=== PATIENT | female | born 1970 | race Caucasian/White ===

== ENCOUNTER 2017-09-14 16:50 | Emergency (ER) | payer OTHER, MEDICAID | END 2017-09-14 18:03 | disposition home or self-care (01) | LOC: FTE 16:50 → E/R 18:03 | DX: Z76.0 Encounter for issue of repeat prescription (principal); I12.0 Hypertensive chronic kidney disease with stage 5 chronic kidney disease or end stage renal disease; N18.6 End stage renal disease; E11.22 Type 2 diabetes mellitus with diabetic chronic kidney disease; Z79.01 Long term (current) use of anticoagulants; Z79.4 Long term (current) use of insulin; Z79.82 Long term (current) use of aspirin; Z87.891 Personal history of nicotine dependence; Z99.2 Dependence on renal dialysis | CPT/HCPCS: 99281; Z7502 ==

== ENCOUNTER 2017-10-11 17:19 | Inpatient (IN) | payer OTHER ==
[2017-10-11 20:21] LABS: ADD MAN DIFF? NO
[2017-10-11 20:27] LABS: WHITE BLOOD COUNT 4.4 10^3/ul (4.8-10.8)
[2017-10-11 20:28] LABS: ABNORMAL IP MESSAGE 1; BASOPHILS % 0.2 % (0.0-2.0); EOSINOPHILS # 0.1 10^3/ul (0.0-0.5); EOSINOPHILS % 3.2 % (0.0-7.0); HEMATOCRIT 20.8 % (37.0-47.0); LYMPHOCYTES # 0.7 10^3/ul (0.8-2.9); LYMPHOCYTES % 15.7 % (15.0-51.0); MEAN CORPUSCULAR HGB CONC 33.2 g/dl (32.0-37.0); MEAN CORPUSCULAR VOLUME 90.4 fl (82.0-101.0); MEAN PLATELET VOLUME 11.5 fl (7.4-10.4); MONOCYTE # 0.3 10^3/ul (0.3-0.9); MONOCYTES % 6.8 % (0.0-11.0); NEUTROPHIL # 3.3 10^3/ul (1.6-7.5); NEUTROPHILS % 74.1 % (39.0-77.0); PLATELET COUNT 190 10^3/UL (140-415); RED CELL DISTRIBUTION WIDTH 13.9 % (11.5-14.5)
[2017-10-11] MEDS ORDERED: LABETALOL HCL 20MG INJ IV (20:30)
[2017-10-11 20:36] LABS: HEMOGLOBIN 6.9 g/dl (12.0-16.0); POSITIVE DIFF @See below
[2017-10-11] MEDS: LABETALOL HCL 20MG INJ IV (20:38)
[2017-10-11 20:45] LABS: ALANINE AMINOTRANSFERASE 30 IU/L (13-69); ALBUMIN 3.8 g/dl (3.3-4.9); ALBUMIN/GLOBULIN RATIO 1.26; ALKALINE PHOSPHATASE 75 IU/L (42-121); ANION GAP 17 (8-16); ASPARTATE AMINO TRANSFERASE 16 IU/L (15-46); BILIRUBIN,INDIRECT 0.3 mg/dl (0-1.1); BILIRUBIN,TOTAL 0.3 mg/dl (0.2-1.3); BLOOD UREA NITROGEN 55 mg/dl (7-20); CALCIUM 7.7 mg/dl (8.4-10.2); CARBON DIOXIDE 19 mmol/L (21-31); CHLORIDE 110 mmol/L (97-110); CREATININE 8.55 mg/dl (0.44-1.00); GLUCOSE 108 mg/dl (70-220); POTASSIUM 3.8 mmol/L (3.5-5.1); SODIUM 142 mmol/L (135-144); TOTAL PROTEIN 6.8 g/dl (6.1-8.1)
[2017-10-11 20:56] LABS: TROPONIN-I 0.026 ng/ml (0.000-0.120)
[2017-10-11 21:44] LABS: ANISOCYTOSIS 1+ (0-0); EOSINOPHILS % (M) 3 % (0-7); LYMPHOCYTES #M 0.7 10^3/ul (0.8-2.9); LYMPHOCYTES % (M) 18 % (15-51); MICROCYTOSIS 1+ (0-0); MONOCYTE #M 0.2 10^3/ul (0.3-0.9); MONOCYTES % (M) 6 % (0-11); PLATELET ESTIMATE NORMAL; POIKILOCYTOSIS 1+ (0-0); SEGMENTED NEUTROPHILS (M) % 73 % (39-77); SMUDGE%M 6 % (0-0)
[2017-10-11] MEDS: hydrALAzine 20 MG INJ IV ×2 (22:18→22:59)
[2017-10-11] MEDS: morphine 4 MG/ML VIAL IV (23:05)
[2017-10-12 00:16] LABS: IMMEDIATE SPIN CROSSMATCH 1 2
[2017-10-12] MEDS: niCARdipine-NS 0.1MG/ML DRIP 200 ML IV (00:25)
[2017-10-12] MEDS: ONDANSETRON 4 MG INJ IV ×4 (00:26→23:46)
[2017-10-12] MEDS: SOD CHLORIDE 0.9% 250 ML IV (00:26)
[2017-10-12] MEDS: INSULIN ASPART [NOVOLOG] 3 ML PEN SC ×3 (07:30→17:30)
[2017-10-12] MEDS: NIFEdipine (XL) 60 MG TAB PO (10:06)
[2017-10-12] MEDS: hydrALAzine 20 MG INJ IV (10:46)
[2017-10-12] MEDS: LISINOPRIL 20 MG TAB PO (10:50)
[2017-10-12] MEDS: CLOPIDOGREL 75 MG TAB PO (10:50)
[2017-10-12] MEDS: NIFEdipine (XL) 30 MG TAB PO (10:51)
[2017-10-12 11:26] LABS: ADD MAN DIFF? NO
[2017-10-12 11:27] LABS: WHITE BLOOD COUNT 6.9 10^3/ul (4.8-10.8)
[2017-10-12 11:27] LABS: BASOPHILS % 0.3 % (0.0-2.0); EOSINOPHILS # 0.1 10^3/ul (0.0-0.5); EOSINOPHILS % 1.6 % (0.0-7.0); HEMATOCRIT 29.9 % (37.0-47.0); HEMOGLOBIN 9.9 g/dl (12.0-16.0); LYMPHOCYTES # 0.9 10^3/ul (0.8-2.9); LYMPHOCYTES % 13.5 % (15.0-51.0); MEAN CORPUSCULAR HEMOGLOBIN 29.8 pg (29.0-33.0); MEAN CORPUSCULAR HGB CONC 33.1 g/dl (32.0-37.0); MEAN CORPUSCULAR VOLUME 90.1 fl (82.0-101.0); MEAN PLATELET VOLUME 11.2 fl (7.4-10.4); MONOCYTE # 0.4 10^3/ul (0.3-0.9); MONOCYTES % 5.1 % (0.0-11.0); NEUTROPHIL # 5.5 10^3/ul (1.6-7.5); NEUTROPHILS % 79.1 % (39.0-77.0); PLATELET COUNT 188 10^3/UL (140-415); RED BLOOD COUNT 3.32 10^6/ul (4.20-5.40); RED CELL DISTRIBUTION WIDTH 13.8 % (11.5-14.5)
[2017-10-12] MEDS: LABETALOL HCL 20MG INJ IV ×2 (11:30→14:07)
[2017-10-12 12:08] LABS: ANION GAP 17 (8-16); BLOOD UREA NITROGEN 55 mg/dl (7-20); CALCIUM 7.6 mg/dl (8.4-10.2); CARBON DIOXIDE 18 mmol/L (21-31); CHLORIDE 113 mmol/L (97-110); CREATININE 9.29 mg/dl (0.44-1.00); GLUCOSE 122 mg/dl (70-220); POTASSIUM 4.2 mmol/L (3.5-5.1); SODIUM 144 mmol/L (135-144)
[2017-10-12 13:09] LABS: HEMOGLOBIN A1C 5.1 % (0-5.9)
[2017-10-12 13:51] LABS: ADD MAN DIFF? NO
[2017-10-12 13:56] LABS: WHITE BLOOD COUNT 5.7 10^3/ul (4.8-10.8)
[2017-10-12 13:56] LABS: ABNORMAL IP MESSAGE 1; BASOPHILS % 0.2 % (0.0-2.0); EOSINOPHILS # 0.1 10^3/ul (0.0-0.5); EOSINOPHILS % 1.2 % (0.0-7.0); HEMOGLOBIN 9.3 g/dl (12.0-16.0); LYMPHOCYTES # 0.5 10^3/ul (0.8-2.9); LYMPHOCYTES % 8.6 % (15.0-51.0); MEAN CORPUSCULAR HGB CONC 33.2 g/dl (32.0-37.0); MEAN CORPUSCULAR VOLUME 90.3 fl (82.0-101.0); MEAN PLATELET VOLUME 10.8 fl (7.4-10.4); MONOCYTE # 0.3 10^3/ul (0.3-0.9); MONOCYTES % 4.6 % (0.0-11.0); NEUTROPHIL # 4.8 10^3/ul (1.6-7.5); NEUTROPHILS % 84.9 % (39.0-77.0); PLATELET COUNT 160 10^3/UL (140-415); RED CELL DISTRIBUTION WIDTH 14.1 % (11.5-14.5)
[2017-10-12 13:58] LABS: POSITIVE DIFF @See below
[2017-10-12] MEDS: INSULIN GLARGINE [LANTus] (100 UNITS/ML) SYG SC (20:43)
[2017-10-13] MEDS: ACETAMINOPHEN 325 MG TAB PO ×2 (04:27→15:15)
[2017-10-13] MEDS: LISINOPRIL 20 MG TAB PO (08:16)
[2017-10-13] MEDS: NIFEdipine (XL) 90 MG TAB PO (08:17)
[2017-10-13] MEDS: CLOPIDOGREL 75 MG TAB PO (08:17)
[2017-10-13] MEDS: INSULIN ASPART [NOVOLOG] 3 ML PEN SC ×3 (08:22→17:30)
[2017-10-13 09:16] LABS: MAGNESIUM 1.8 mg/dl (1.7-2.5)
[2017-10-13 09:19] LABS: ANION GAP 12 (8-16); BLOOD UREA NITROGEN 58 mg/dl (7-20); CALCIUM 6.9 mg/dl (8.4-10.2); CARBON DIOXIDE 20 mmol/L (21-31); CHLORIDE 114 mmol/L (97-110); CREATININE 10.38 mg/dl (0.44-1.00); GLUCOSE 92 mg/dl (70-220); POTASSIUM 4.2 mmol/L (3.5-5.1); SODIUM 142 mmol/L (135-144)
[2017-10-13] MEDS: hydrALAzine 20 MG INJ IV ×2 (09:45→15:25)
[2017-10-13] MEDS: INSULIN GLARGINE [LANTus] (100 UNITS/ML) SYG SC (20:10)
[2017-10-13] MEDS: ARTIFICIAL TEARS 15 ML OPH BOTH EYES (21:56)
[2017-10-13] MEDS: morphine 2 MG INJ IV (21:56)
[2017-10-14 00:15] LABS: HEPATITIS B SURFACE ANTIGEN NEGATIVE (NEGATIVE)
[2017-10-14 00:32] LABS: HEPATITIS B SURFACE ANTIBODY POSITIVE (NEGATIVE)
[2017-10-14] MEDS: HEPARIN 1000 UNITS/ML 10 ML INJ CATHETER (01:53)
[2017-10-14] MEDS: hydrALAzine 20 MG INJ IV ×3 (01:57→10:51)
[2017-10-14] MEDS: ARTIFICIAL TEARS 15 ML OPH BOTH EYES ×5 (02:32→19:58)
[2017-10-14] MEDS: ACETAMINOPHEN 325 MG TAB PO ×2 (04:54→19:58)
[2017-10-14] MEDS: DOCUSATE SODIUM 100 MG CAP PO ×3 (04:54→19:58)
[2017-10-14] MEDS: AMLODIPINE 2.5 MG TAB PO (04:54)
[2017-10-14] MEDS: INSULIN ASPART [NOVOLOG] 3 ML PEN SC ×3 (07:30→17:30)
[2017-10-14] MEDS: ONDANSETRON 4 MG INJ IV (07:50)
[2017-10-14] MEDS: MAGNESIUM HYDROXIDE 30ML CUP PO (08:04)
[2017-10-14 08:25] LABS: ANION GAP 13 (8-16); BLOOD UREA NITROGEN 32 mg/dl (7-20); CALCIUM 7.2 mg/dl (8.4-10.2); CARBON DIOXIDE 25 mmol/L (21-31); CHLORIDE 104 mmol/L (97-110); CREATININE 6.64 mg/dl (0.44-1.00); GLUCOSE 127 mg/dl (70-220); POTASSIUM 3.7 mmol/L (3.5-5.1); SODIUM 138 mmol/L (135-144)
[2017-10-14] MEDS: LISINOPRIL 20 MG TAB PO (08:54)
[2017-10-14] MEDS: AMLODIPINE 5 MG TAB PO (08:54)
[2017-10-14] MEDS: CLOPIDOGREL 75 MG TAB PO (08:54)
[2017-10-14] MEDS: NIFEdipine (XL) 90 MG TAB PO (08:55)
[2017-10-14] MEDS: BISACODYL 10 MG SUPP PR (10:13)
[2017-10-14] MEDS: MAGNESIUM CITRATE 300 ML BTL PO (11:51)
[2017-10-14] MEDS: LABETALOL HCL 20MG INJ IV (14:58)
[2017-10-14] MEDS: MINERAL OIL 133 ML ENEMA PR (17:37)
[2017-10-14] MEDS: INSULIN GLARGINE [LANTus] (100 UNITS/ML) SYG SC (20:07)
[2017-10-14] MEDS ORDERED: SENNA TAB PO (22:00)
[2017-10-14] MEDS ORDERED: DOCUSATE SODIUM 100 MG CAP PO (22:00)
[2017-10-14] MEDS: POLYETHYLENE GLYCOL 17 GM PACKET PO (22:54)
[2017-10-15] MEDS: INSULIN ASPART [NOVOLOG] 3 ML PEN SC ×3 (07:30→17:21)
[2017-10-15 07:33] LABS: ANION GAP 15 (8-16); BLOOD UREA NITROGEN 41 mg/dl (7-20); CALCIUM 7.1 mg/dl (8.4-10.2); CARBON DIOXIDE 26 mmol/L (21-31); CHLORIDE 99 mmol/L (97-110); GLUCOSE 100 mg/dl (70-220); SODIUM 136 mmol/L (135-144)
[2017-10-15] MEDS: LISINOPRIL 20 MG TAB PO (08:01)
[2017-10-15] MEDS: NIFEdipine (XL) 90 MG TAB PO (08:02)
[2017-10-15] MEDS: CLOPIDOGREL 75 MG TAB PO (08:02)
[2017-10-15] MEDS: DOCUSATE SODIUM 100 MG CAP PO (08:02)
[2017-10-15] MEDS: AMLODIPINE 5 MG TAB PO (08:02)
[2017-10-15] MEDS: POLYETHYLENE GLYCOL 17 GM PACKET PO (08:03)
[2017-10-15] MEDS: ARTIFICIAL TEARS 15 ML OPH BOTH EYES ×3 (08:03→17:09)
[2017-10-15] MEDS ORDERED: HEPARIN 1000 UNITS/ML 10 ML INJ (16:52)
[2017-10-15] MEDS: HEPARIN 1000 UNITS/ML 10 ML INJ CATHETER (17:30)
== END 2017-10-15 19:30 | disposition home or self-care (01) | DRG 304 ==
LOC: E/R 17:19 → MS4 10-12 00:06
PROC: 30233N1 Transfusion of Nonautologous Red Blood Cells into Peripheral Vein, Percutaneous Approach (ICD-10-PCS; principal; 2017-10-12)
PROC: 5A1D70Z Performance of Urinary Filtration, Intermittent, Less than 6 Hours Per Day (ICD-10-PCS; 2017-10-13)
DX: I16.1 Hypertensive emergency (principal); N18.6 End stage renal disease; I12.0 Hypertensive chronic kidney disease with stage 5 chronic kidney disease or end stage renal disease; Z99.2 Dependence on renal dialysis; D63.1 Anemia in chronic kidney disease; Z86.73 Personal history of transient ischemic attack (TIA), and cerebral infarction without residual deficits; E11.9 Type 2 diabetes mellitus without complications; Z79.82 Long term (current) use of aspirin; Z79.4 Long term (current) use of insulin
CPT/HCPCS: 36415; 36430; 70450; 80048; 80053; 82962; 83036; 83735; 84439; 84443; 84484; 85025; 86706; 86850; 86900; 86901; 86920; 87340; 90935; 93005; 93306; 96374; 96375; 96376; 99291-25

== ENCOUNTER 2017-12-01 13:12 | Inpatient (IN) | payer OTHER ==
[2017-12-01 16:14] LABS: ADD MAN DIFF? NO
[2017-12-01] MEDS: hydrALAzine 20 MG INJ IV ×3 (16:16→22:18)
[2017-12-01] MEDS: ONDANSETRON 4 MG INJ IV (16:16)
[2017-12-01] MEDS: morphine 4 MG/ML VIAL IV (16:17)
[2017-12-01 16:20] LABS: WHITE BLOOD COUNT 5.5 10^3/ul (4.8-10.8)
[2017-12-01 16:21] LABS: BASOPHILS % 0.2 % (0.0-2.0); EOSINOPHILS # 0.1 10^3/ul (0.0-0.5); EOSINOPHILS % 2.2 % (0.0-7.0); HEMATOCRIT 39.9 % (37.0-47.0); HEMOGLOBIN 13.1 g/dl (12.0-16.0); LYMPHOCYTES # 1.1 10^3/ul (0.8-2.9); LYMPHOCYTES % 20.4 % (15.0-51.0); MEAN CORPUSCULAR HEMOGLOBIN 30.5 pg (29.0-33.0); MEAN CORPUSCULAR HGB CONC 32.8 g/dl (32.0-37.0); MEAN PLATELET VOLUME 10.9 fl (7.4-10.4); MONOCYTE # 0.3 10^3/ul (0.3-0.9); NEUTROPHIL # 3.9 10^3/ul (1.6-7.5); NEUTROPHILS % 70.7 % (39.0-77.0); PLATELET COUNT 210 10^3/UL (140-415); RED BLOOD COUNT 4.29 10^6/ul (4.20-5.40); RED CELL DISTRIBUTION WIDTH 15.9 % (11.5-14.5)
[2017-12-01 16:39] LABS: ALANINE AMINOTRANSFERASE 25 IU/L (13-69); ALBUMIN/GLOBULIN RATIO 1.14; ALKALINE PHOSPHATASE 100 IU/L (42-121); ANION GAP 24 (8-16); ASPARTATE AMINO TRANSFERASE 20 IU/L (15-46); BLOOD UREA NITROGEN 94 mg/dl (7-20); CARBON DIOXIDE 17 mmol/L (21-31); CHLORIDE 106 mmol/L (97-110); GLUCOSE 151 mg/dl (70-220); LIPASE 191 U/L (23-300); POTASSIUM 5.9 mmol/L (3.5-5.1); SODIUM 141 mmol/L (135-144); TOTAL PROTEIN 7.5 g/dl (6.1-8.1)
[2017-12-01 16:45] LABS: CREATININE 13.83 mg/dl (0.44-1.00)
[2017-12-01 16:50] LABS: TROPONIN-I < 0.012 ng/ml (0.000-0.120)
[2017-12-01] MEDS: CA CHLORIDE 10% 10 ML SYRINGE IV (18:27)
[2017-12-01] MEDS: FUROSEMIDE 40 MG INJ IV (18:27)
[2017-12-01] MEDS: HYDROCODONE/APAP (5/325) TAB PO (18:30)
[2017-12-01] MEDS: LORAZEPAM 2 MG INJ IV (18:30)
[2017-12-01] MEDS ORDERED: DEXTROSE 50% 50 ML SYRINGE IV ×2 (19:30)
[2017-12-01] MEDS ORDERED: DOCUSATE SODIUM 100 MG CAP PO (19:30)
[2017-12-01] MEDS ORDERED: GLUCOSE GEL 15 GRAM TUBE PO ×2 (19:30)
[2017-12-01] MEDS ORDERED: MAGNESIUM HYDROXIDE 30ML CUP PO (19:30)
[2017-12-01] MEDS ORDERED: GLUCAGON 1 MG INJ IM (19:30)
[2017-12-01] MEDS ORDERED: BISACODYL 10 MG SUPP PR (19:30)
[2017-12-01] MEDS ORDERED: NACL 0.9% 3 ML SYG IV (19:30)
[2017-12-01] MEDS ORDERED: GLUCOSE GEL 15 GRAM TUBE BUCCAL (19:30)
[2017-12-01] MEDS: LOSARTAN 50 MG TAB PO (20:34)
[2017-12-01] MEDS: INSULIN ASPART [NOVOLOG] 3 ML PEN SC (21:00)
[2017-12-01] MEDS: NIFEdipine (XL) 90 MG TAB PO (21:00)
[2017-12-01] MEDS: INSULIN GLARGINE [LANTus] (100 UNITS/ML) SYG SC (21:00)
[2017-12-01] MEDS: FAMOTIDINE 20 MG TAB PO (21:40)
[2017-12-02] MEDS: ONDANSETRON 4 MG INJ IV ×5 (00:44→22:35)
[2017-12-02] MEDS: morphine 2 MG INJ IV ×3 (00:53→20:35)
[2017-12-02] MEDS: ACCU-CHEK XX (02:00)
[2017-12-02 05:36] LABS: ADD MAN DIFF? NO
[2017-12-02 05:39] LABS: BASOPHILS % 0.2 % (0.0-2.0); EOSINOPHILS # 0.1 10^3/ul (0.0-0.5); EOSINOPHILS % 1.9 % (0.0-7.0); HEMATOCRIT 36.9 % (37.0-47.0); HEMOGLOBIN 11.5 g/dl (12.0-16.0); LYMPHOCYTES # 0.9 10^3/ul (0.8-2.9); LYMPHOCYTES % 18.4 % (15.0-51.0); MEAN CORPUSCULAR HEMOGLOBIN 29.5 pg (29.0-33.0); MEAN CORPUSCULAR HGB CONC 31.2 g/dl (32.0-37.0); MEAN CORPUSCULAR VOLUME 94.6 fl (82.0-101.0); MEAN PLATELET VOLUME 10.6 fl (7.4-10.4); MONOCYTE # 0.3 10^3/ul (0.3-0.9); MONOCYTES % 5.8 % (0.0-11.0); NEUTROPHIL # 3.5 10^3/ul (1.6-7.5); NEUTROPHILS % 72.7 % (39.0-77.0); PLATELET COUNT 159 10^3/UL (140-415); RED CELL DISTRIBUTION WIDTH 16.5 % (11.5-14.5)
[2017-12-02 05:39] LABS: WHITE BLOOD COUNT 4.9 10^3/ul (4.8-10.8)
[2017-12-02 06:09] LABS: ALANINE AMINOTRANSFERASE 24 IU/L (13-69); ALBUMIN 3.2 g/dl (3.3-4.9); ALBUMIN/GLOBULIN RATIO 1.06; ALKALINE PHOSPHATASE 72 IU/L (42-121); ANION GAP 22 (8-16); ASPARTATE AMINO TRANSFERASE 17 IU/L (15-46); BLOOD UREA NITROGEN 100 mg/dl (7-20); CALCIUM 8.7 mg/dl (8.4-10.2); CARBON DIOXIDE 16 mmol/L (21-31); CHLORIDE 110 mmol/L (97-110); CHOL/HDL RATIO 3.2 RATIO; CHOLESTEROL 135 mg/dl (100-200); GLUCOSE 89 mg/dl (70-220); HDL CHOLESTEROL 41 mg/dl (34-88); LDL CHOLESTEROL,CALCULATED 65 mg/dl; MAGNESIUM 2.5 mg/dl (1.7-2.5); SODIUM 141 mmol/L (135-144); TOTAL PROTEIN 6.2 g/dl (6.1-8.1); TRIGLYCERIDES 145 mg/dl (0-149)
[2017-12-02 06:14] LABS: CREATININE 14.32 mg/dl (0.44-1.00)
[2017-12-02 06:16] LABS: POTASSIUM 7.2 mmol/L (3.5-5.1)
[2017-12-02] MEDS: NIFEdipine (XL) 90 MG TAB PO ×3 (08:00→21:00)
[2017-12-02] MEDS: INSULIN ASPART [NOVOLOG] 3 ML PEN SC ×7 (08:00→20:32)
[2017-12-02] MEDS: LOSARTAN 50 MG TAB PO ×3 (08:00→20:31)
[2017-12-02] MEDS: CALCIUM ACETATE 667 MG CAP PO ×4 (08:00→17:50)
[2017-12-02] MEDS: hydrALAzine 20 MG INJ IV ×2 (08:05→13:22)
[2017-12-02] MEDS: CLOPIDOGREL 75 MG TAB PO ×2 (08:05→08:36)
[2017-12-02 08:17] LABS: HEMOGLOBIN A1C 4.8 % (0-5.9)
[2017-12-02 09:06] LABS: HEPATITIS B SURFACE ANTIBODY POSITIVE (NEGATIVE)
[2017-12-02] MEDS: HEPARIN 1000 UNITS/ML 10 ML INJ CATHETER (09:45)
[2017-12-02 10:14] LABS: HEPATITIS B SURFACE ANTIGEN NEGATIVE (NEGATIVE)
[2017-12-02] MEDS: FAMOTIDINE 20 MG TAB PO (20:31)
[2017-12-02] MEDS: INSULIN GLARGINE [LANTus] (100 UNITS/ML) SYG SC (20:43)
[2017-12-03] MEDS: ACCU-CHEK XX (02:00)
[2017-12-03] MEDS: INSULIN ASPART [NOVOLOG] 3 ML PEN SC ×7 (08:00→20:32)
[2017-12-03] MEDS: hydrALAzine 20 MG INJ IV ×2 (08:18→16:07)
[2017-12-03] MEDS: LOSARTAN 50 MG TAB PO ×2 (08:20→20:31)
[2017-12-03] MEDS: NIFEdipine (XL) 90 MG TAB PO ×2 (08:20→20:31)
[2017-12-03] MEDS: CALCIUM ACETATE 667 MG CAP PO ×3 (08:20→17:22)
[2017-12-03] MEDS: CLOPIDOGREL 75 MG TAB PO (08:20)
[2017-12-03] MEDS: ONDANSETRON 4 MG INJ IV (08:55)
[2017-12-03] MEDS ORDERED: ENALAPRILAT 1.25 MG INJ IV (10:30)
[2017-12-03 11:18] LABS: ADD MAN DIFF? NO
[2017-12-03 11:26] LABS: WHITE BLOOD COUNT 4.9 10^3/ul (4.8-10.8)
[2017-12-03 11:26] LABS: BASOPHILS % 0.4 % (0.0-2.0); EOSINOPHILS # 0.1 10^3/ul (0.0-0.5); EOSINOPHILS % 1.2 % (0.0-7.0); HEMATOCRIT 37.8 % (37.0-47.0); LYMPHOCYTES # 0.7 10^3/ul (0.8-2.9); LYMPHOCYTES % 14.3 % (15.0-51.0); MEAN CORPUSCULAR HGB CONC 31.7 g/dl (32.0-37.0); MEAN CORPUSCULAR VOLUME 94.5 fl (82.0-101.0); MEAN PLATELET VOLUME 10.5 fl (7.4-10.4); MONOCYTE # 0.4 10^3/ul (0.3-0.9); MONOCYTES % 7.4 % (0.0-11.0); NEUTROPHIL # 3.7 10^3/ul (1.6-7.5); NEUTROPHILS % 75.1 % (39.0-77.0); PLATELET COUNT 146 10^3/UL (140-415)
[2017-12-03 11:44] LABS: ANION GAP 18 (8-16); BLOOD UREA NITROGEN 50 mg/dl (7-20); CALCIUM 8.3 mg/dl (8.4-10.2); CARBON DIOXIDE 24 mmol/L (21-31); CHLORIDE 104 mmol/L (97-110); CREATININE 10.39 mg/dl (0.44-1.00); GLUCOSE 102 mg/dl (70-220); MAGNESIUM 2.2 mg/dl (1.7-2.5); PHOSPHORUS 6.6 mg/dl (2.5-4.9); SODIUM 141 mmol/L (135-144)
[2017-12-03] MEDS: HEPARIN 1000 UNITS/ML 10 ML INJ CATHETER (14:11)
[2017-12-03] MEDS: FAMOTIDINE 20 MG TAB PO (20:32)
[2017-12-03] MEDS: INSULIN GLARGINE [LANTus] (100 UNITS/ML) SYG SC (20:35)
[2017-12-04] MEDS: morphine 2 MG INJ IV ×3 (00:12→18:10)
[2017-12-04] MEDS: hydrALAzine 20 MG INJ IV ×2 (00:14→14:42)
[2017-12-04] MEDS: ACCU-CHEK XX (02:00)
[2017-12-04 06:17] LABS: ADD MAN DIFF? NO
[2017-12-04 06:32] LABS: BASOPHILS % 0.2 % (0.0-2.0); EOSINOPHILS # 0.1 10^3/ul (0.0-0.5); HEMATOCRIT 37.3 % (37.0-47.0); HEMOGLOBIN 11.7 g/dl (12.0-16.0); LYMPHOCYTES # 0.6 10^3/ul (0.8-2.9); LYMPHOCYTES % 13.8 % (15.0-51.0); MEAN CORPUSCULAR HEMOGLOBIN 29.7 pg (29.0-33.0); MEAN CORPUSCULAR HGB CONC 31.4 g/dl (32.0-37.0); MEAN CORPUSCULAR VOLUME 94.7 fl (82.0-101.0); MEAN PLATELET VOLUME 12.2 fl (7.4-10.4); MONOCYTE # 0.5 10^3/ul (0.3-0.9); MONOCYTES % 10.2 % (0.0-11.0); NEUTROPHIL # 3.3 10^3/ul (1.6-7.5); NEUTROPHILS % 73.1 % (39.0-77.0); PLATELET COUNT 148 10^3/UL (140-415); RED BLOOD COUNT 3.94 10^6/ul (4.20-5.40); RED CELL DISTRIBUTION WIDTH 15.5 % (11.5-14.5)
[2017-12-04 06:32] LABS: WHITE BLOOD COUNT 4.5 10^3/ul (4.8-10.8)
[2017-12-04 07:15] LABS: MAGNESIUM 2.1 mg/dl (1.7-2.5)
[2017-12-04 07:15] LABS: PHOSPHORUS 4.9 mg/dl (2.5-4.9)
[2017-12-04 07:18] LABS: ANION GAP 14 (8-16); BLOOD UREA NITROGEN 29 mg/dl (7-20); CALCIUM 8.4 mg/dl (8.4-10.2); CARBON DIOXIDE 28 mmol/L (21-31); CHLORIDE 101 mmol/L (97-110); GLUCOSE 110 mg/dl (70-220); POTASSIUM 5.6 mmol/L (3.5-5.1); SODIUM 137 mmol/L (135-144)
[2017-12-04] MEDS: INSULIN ASPART [NOVOLOG] 3 ML PEN SC ×6 (07:29→17:44)
[2017-12-04] MEDS: CLOPIDOGREL 75 MG TAB PO (08:15)
[2017-12-04] MEDS: CALCIUM ACETATE 667 MG CAP PO ×3 (08:15→17:43)
[2017-12-04] MEDS: NIFEdipine (XL) 90 MG TAB PO (08:16)
[2017-12-04] MEDS: LOSARTAN 50 MG TAB PO (08:16)
[2017-12-04] MEDS: ALBUMIN HUMAN 25% 100 ML IV (11:00)
[2017-12-04] MEDS: HEPARIN 1000 UNITS/ML 10 ML INJ CATHETER (11:26)
[2017-12-04] MEDS: ACETAMINOPHEN 325 MG TAB PO (11:31)
[2017-12-04] MEDS: ONDANSETRON 4 MG INJ IV (12:48)
[2017-12-04] MEDS: NITROGLYCERIN (SL) 0.4 MG TAB SL ×3 (16:49→17:04)
[2017-12-04 17:52] LABS: TROPONIN-I < 0.012 ng/ml (0.000-0.120)
== END 2017-12-04 20:04 | disposition short-term general hospital (02) | DRG 640 ==
LOC: 6WM 19:14 → E/R 13:12 → 6WM 12-02 00:13
PROC: 5A1D70Z Performance of Urinary Filtration, Intermittent, Less than 6 Hours Per Day (ICD-10-PCS; principal; 2017-12-02)
DX: E87.5 Hyperkalemia (principal); N18.6 End stage renal disease; I13.2 Hypertensive heart and chronic kidney disease with heart failure and with stage 5 chronic kidney disease, or end stage renal disease; I50.30 Unspecified diastolic (congestive) heart failure; G44.209 Tension-type headache, unspecified, not intractable; I16.0 Hypertensive urgency; Z99.2 Dependence on renal dialysis; Z91.15 Patient's noncompliance with renal dialysis; E11.9 Type 2 diabetes mellitus without complications; I25.10 Atherosclerotic heart disease of native coronary artery without angina pectoris; Z86.73 Personal history of transient ischemic attack (TIA), and cerebral infarction without residual deficits
CPT/HCPCS: 36415; 70450; 71045; 80048; 80053; 80061; 82962; 83036; 83690; 83735; 84100; 84484; 85025; 86706; 87081; 87340; 90935; 93005; 96374; 96375; 99285-25

== ENCOUNTER 2017-12-27 17:00 | Emergency (ER) | payer OTHER ==
[2017-12-27] MEDS: hydrALAzine 20 MG INJ IV (17:37)
[2017-12-27 17:41] LABS: ADD MAN DIFF? NO
[2017-12-27 17:45] LABS: BASOPHILS % 0.2 % (0.0-2.0); EOSINOPHILS # 0.2 10^3/ul (0.0-0.5); HEMATOCRIT 38.3 % (37.0-47.0); LYMPHOCYTES # 1.3 10^3/ul (0.8-2.9); LYMPHOCYTES % 21.6 % (15.0-51.0); MEAN CORPUSCULAR HEMOGLOBIN 29.4 pg (29.0-33.0); MEAN CORPUSCULAR HGB CONC 31.3 g/dl (32.0-37.0); MEAN CORPUSCULAR VOLUME 93.9 fl (82.0-101.0); MONOCYTE # 0.5 10^3/ul (0.3-0.9); MONOCYTES % 8.4 % (0.0-11.0); NEUTROPHIL # 3.8 10^3/ul (1.6-7.5); NEUTROPHILS % 65.6 % (39.0-77.0); PLATELET COUNT 165 10^3/UL (140-415); RED BLOOD COUNT 4.08 10^6/ul (4.20-5.40); RED CELL DISTRIBUTION WIDTH 14.3 % (11.5-14.5)
[2017-12-27 17:45] LABS: WHITE BLOOD COUNT 5.8 10^3/ul (4.8-10.8)
[2017-12-27] MEDS: OXYCODONE/ACETAMINOPHEN (5/325) TAB PO (17:58)
[2017-12-27 18:02] LABS: ALANINE AMINOTRANSFERASE 34 IU/L (13-69); ALBUMIN/GLOBULIN RATIO 1.02; ALKALINE PHOSPHATASE 103 IU/L (42-121); ANION GAP 16 (8-16); ASPARTATE AMINO TRANSFERASE 38 IU/L (15-46); BILIRUBIN,INDIRECT 0.2 mg/dl (0-1.1); BILIRUBIN,TOTAL 0.2 mg/dl (0.2-1.3); BLOOD UREA NITROGEN 49 mg/dl (7-20); CALCIUM 9.8 mg/dl (8.4-10.2); CARBON DIOXIDE 26 mmol/L (21-31); CHLORIDE 107 mmol/L (97-110); CREATININE 10.37 mg/dl (0.44-1.00); GLUCOSE 103 mg/dl (70-220); LIPASE 98 U/L (23-300); POTASSIUM 5.2 mmol/L (3.5-5.1); SODIUM 144 mmol/L (135-144); TOTAL PROTEIN 7.9 g/dl (6.1-8.1)
[2017-12-27 18:13] LABS: TROPONIN-I < 0.012 ng/ml (0.000-0.120)
[2017-12-27] MEDS ORDERED: LORAZEPAM 2 MG INJ (18:13)
[2017-12-27] MEDS: LORAZEPAM 2 MG INJ IV (18:23)
[2017-12-27] MEDS ORDERED: LORAZEPAM 0.5 MG TAB PO (18:30)
== END 2017-12-27 19:47 | disposition home or self-care (01) ==
LOC: E/R 19:47
DX: F41.9 Anxiety disorder, unspecified (principal); I12.0 Hypertensive chronic kidney disease with stage 5 chronic kidney disease or end stage renal disease; N18.6 End stage renal disease; E11.22 Type 2 diabetes mellitus with diabetic chronic kidney disease; I50.9 Heart failure, unspecified; G89.29 Other chronic pain; Z79.4 Long term (current) use of insulin; Z99.2 Dependence on renal dialysis
CPT/HCPCS: 36415; 71045; 80053; 83690; 84484; 85025; 93005; 96374; 96375; 99285-25

== ENCOUNTER 2017-12-28 16:12 | Inpatient (IN) | payer OTHER ==
[2017-12-28] MEDS ORDERED: NITROGLYCERIN 50 MG/D5W (PMX) 250 ML (16:30)
[2017-12-28] MEDS ORDERED: niCARdipine-NS 0.1MG/ML DRIP 200 ML IV (16:30)
[2017-12-28 16:32] LABS: ADD MAN DIFF? NO
[2017-12-28] MEDS: NITROGLYCERIN 50 MG/D5W (PMX) 250 ML IV (16:32)
[2017-12-28 16:33] LABS: ABNORMAL IP MESSAGE 1; BASOPHILS % 0.2 % (0.0-2.0); EOSINOPHILS # 0.2 10^3/ul (0.0-0.5); EOSINOPHILS % 2.7 % (0.0-7.0); HEMATOCRIT 35.7 % (37.0-47.0); HEMOGLOBIN 11.4 g/dl (12.0-16.0); LYMPHOCYTES # 0.6 10^3/ul (0.8-2.9); LYMPHOCYTES % 10.3 % (15.0-51.0); MEAN CORPUSCULAR HEMOGLOBIN 30.2 pg (29.0-33.0); MEAN CORPUSCULAR HGB CONC 31.9 g/dl (32.0-37.0); MEAN CORPUSCULAR VOLUME 94.4 fl (82.0-101.0); MEAN PLATELET VOLUME 12.5 fl (7.4-10.4); MONOCYTE # 0.4 10^3/ul (0.3-0.9); MONOCYTES % 6.2 % (0.0-11.0); NEUTROPHIL # 4.5 10^3/ul (1.6-7.5); NEUTROPHILS % 79.9 % (39.0-77.0); PLATELET COUNT 134 10^3/UL (140-415); RED BLOOD COUNT 3.78 10^6/ul (4.20-5.40); RED CELL DISTRIBUTION WIDTH 14.5 % (11.5-14.5)
[2017-12-28 16:33] LABS: WHITE BLOOD COUNT 5.6 10^3/ul (4.8-10.8)
[2017-12-28 16:36] LABS: POSITIVE DIFF @See below
[2017-12-28 17:05] LABS: ALANINE AMINOTRANSFERASE 33 IU/L (13-69); ALBUMIN 3.8 g/dl (3.3-4.9); ALBUMIN/GLOBULIN RATIO 1.15; ALKALINE PHOSPHATASE 89 IU/L (42-121); ANION GAP 20 (8-16); ASPARTATE AMINO TRANSFERASE 27 IU/L (15-46); BILIRUBIN,INDIRECT 0.2 mg/dl (0-1.1); BILIRUBIN,TOTAL 0.2 mg/dl (0.2-1.3); BLOOD UREA NITROGEN 57 mg/dl (7-20); CALCIUM 9.5 mg/dl (8.4-10.2); CARBON DIOXIDE 22 mmol/L (21-31); CHLORIDE 107 mmol/L (97-110); CREATININE 11.86 mg/dl (0.44-1.00); GLUCOSE 105 mg/dl (70-220); LIPASE 66 U/L (23-300); POTASSIUM 5.5 mmol/L (3.5-5.1); SODIUM 143 mmol/L (135-144); TOTAL PROTEIN 7.1 g/dl (6.1-8.1)
[2017-12-28 17:16] LABS: TROPONIN-I 0.013 ng/ml (0.000-0.120)
[2017-12-28 17:28] LABS: BASOPHILS % (M) 1 % (0-2); EOSINOPHILS % (M) 3 % (0-7); GIANT THROMBO% (M) 4 % (0-0); LYMPHOCYTES #M 0.7 10^3/ul (0.8-2.9); LYMPHOCYTES % (M) 13 % (15-51); MONOCYTE #M 0.2 10^3/ul (0.3-0.9); MONOCYTES % (M) 5 % (0-11); PLATELET MORPHOLOGY COMMENT @See below; SEGMENTED NEUTROPHILS (M) % 78 % (39-77); SMUDGE%M 10 % (0-0)
[2017-12-28] MEDS: HYDROmorphONE 0.5 MG/0.5 ML SYG IV (18:05)
[2017-12-28] MEDS ORDERED: DOCUSATE SODIUM 100 MG CAP PO (18:30)
[2017-12-28] MEDS ORDERED: BISACODYL 10 MG SUPP PR (18:30)
[2017-12-28] MEDS ORDERED: NITROGLYCERIN (SL) 0.4 MG TAB SL (18:30)
[2017-12-28] MEDS ORDERED: ACETAMINOPHEN 325 MG TAB PO (18:30)
[2017-12-28] MEDS ORDERED: NACL 0.9% 3 ML SYG IV (18:30)
[2017-12-28] MEDS ORDERED: MAGNESIUM HYDROXIDE 30ML CUP PO (18:30)
[2017-12-28] MEDS: NITROPRUSSIDE 50 MG in DEXTROSE 5% 248 ML IV (18:43)
[2017-12-28] MEDS ORDERED: DEXTROSE 50% 50 ML SYRINGE IV ×2 (19:00)
[2017-12-28] MEDS ORDERED: GLUCOSE GEL 15 GRAM TUBE PO ×2 (19:00)
[2017-12-28] MEDS ORDERED: GLUCAGON 1 MG INJ IM (19:00)
[2017-12-28] MEDS ORDERED: GLUCOSE GEL 15 GRAM TUBE BUCCAL (19:00)
[2017-12-28] MEDS: INSULIN ASPART [NOVOLOG] 3 ML PEN SC (21:00)
[2017-12-28] MEDS: HEPARIN 5,000 UNIT/0.5 ML VIAL SC (21:00)
[2017-12-28] MEDS: NIFEdipine (XL) 90 MG TAB PO (21:07)
[2017-12-28] MEDS: LOSARTAN 50 MG TAB PO (21:13)
[2017-12-28] MEDS: FAMOTIDINE 20 MG INJ IV (21:13)
[2017-12-28] MEDS: INSULIN GLARGINE [LANTus] (100 UNITS/ML) SYG SC (23:13)
[2017-12-28] MEDS: HYDROmorphONE 1 MG/ML SYG IV (23:20)
[2017-12-28 23:22] LABS: CREATINE KINASE 53 IU/L (23-200)
[2017-12-28 23:35] LABS: CK INDEX 1.4; CK-MB 0.74 ng/ml (0.0-2.4); TROPONIN-I 0.024 ng/ml (0.000-0.120)
[2017-12-29] MEDS: HYDROmorphONE 1 MG/ML SYG IV (01:24)
[2017-12-29] MEDS: ACCU-CHEK XX (01:25)
[2017-12-29] MEDS: ONDANSETRON 4 MG INJ IV (01:27)
[2017-12-29] MEDS: HEPARIN 1000 UNITS/ML 10 ML INJ CATHETER (04:20)
[2017-12-29] MEDS ORDERED: HYDROmorphONE 2 MG TAB PO (06:00)
[2017-12-29] MEDS: NITROPRUSSIDE 50 MG in DEXTROSE 5% 248 ML IV (06:11)
[2017-12-29] MEDS: INSULIN ASPART [NOVOLOG] 3 ML PEN SC ×7 (07:35→20:41)
[2017-12-29 07:53] LABS: ADD MAN DIFF? NO
[2017-12-29 07:55] LABS: ABNORMAL IP MESSAGE 1; BASOPHILS % 0.2 % (0.0-2.0); EOSINOPHILS # 0.1 10^3/ul (0.0-0.5); EOSINOPHILS % 1.5 % (0.0-7.0); HEMATOCRIT 30.4 % (37.0-47.0); HEMOGLOBIN 9.8 g/dl (12.0-16.0); LYMPHOCYTES # 0.5 10^3/ul (0.8-2.9); LYMPHOCYTES % 11.2 % (15.0-51.0); MEAN CORPUSCULAR HEMOGLOBIN 30.1 pg (29.0-33.0); MEAN CORPUSCULAR HGB CONC 32.2 g/dl (32.0-37.0); MEAN CORPUSCULAR VOLUME 93.3 fl (82.0-101.0); MONOCYTE # 0.3 10^3/ul (0.3-0.9); NEUTROPHIL # 3.2 10^3/ul (1.6-7.5); NEUTROPHILS % 78.9 % (39.0-77.0); PLATELET COUNT 129 10^3/UL (140-415); RED BLOOD COUNT 3.26 10^6/ul (4.20-5.40)
[2017-12-29] MEDS: CALCIUM ACETATE 667 MG CAP PO ×3 (08:25→18:08)
[2017-12-29] MEDS: MULTIVIT/CA CARB/B CMPLX/FA TAB PO (08:25)
[2017-12-29] MEDS: CLOPIDOGREL 75 MG TAB PO (08:25)
[2017-12-29] MEDS: LOSARTAN 50 MG TAB PO ×2 (08:25→20:46)
[2017-12-29] MEDS: NIFEdipine (XL) 90 MG TAB PO (08:26)
[2017-12-29 08:33] LABS: POSITIVE DIFF @See below
[2017-12-29] MEDS: HEPARIN 5,000 UNIT/0.5 ML VIAL SC ×2 (08:33→20:47)
[2017-12-29 08:35] LABS: ALANINE AMINOTRANSFERASE 24 IU/L (13-69); ALBUMIN 3.5 g/dl (3.3-4.9); ALBUMIN/GLOBULIN RATIO 1.25; ALKALINE PHOSPHATASE 65 IU/L (42-121); ANION GAP 12 (8-16); ASPARTATE AMINO TRANSFERASE 20 IU/L (15-46); BILIRUBIN,INDIRECT 0.2 mg/dl (0-1.1); BILIRUBIN,TOTAL 0.2 mg/dl (0.2-1.3); BLOOD UREA NITROGEN 30 mg/dl (7-20); CALCIUM 8.9 mg/dl (8.4-10.2); CARBON DIOXIDE 29 mmol/L (21-31); CHLORIDE 105 mmol/L (97-110); CREATININE 7.02 mg/dl (0.44-1.00); GLUCOSE 116 mg/dl (70-220); POTASSIUM 4.8 mmol/L (3.5-5.1); SODIUM 141 mmol/L (135-144); TOTAL PROTEIN 6.3 g/dl (6.1-8.1)
[2017-12-29 08:36] LABS: MAGNESIUM 2.1 mg/dl (1.7-2.5); PHOSPHORUS 4.3 mg/dl (2.5-4.9)
[2017-12-29 08:39] LABS: TROPONIN-I 0.027 ng/ml (0.000-0.120)
[2017-12-29 08:57] LABS: CREATINE KINASE 36 IU/L (23-200)
[2017-12-29] MEDS ORDERED: NON-FORMULARY/PATIENT OWN MED (Linaclotide (Linzess) 145 MCG) PO (09:00)
[2017-12-29 09:07] LABS: CK INDEX 1.5; CK-MB 0.54 ng/ml (0.0-2.4)
[2017-12-29] MEDS: FAMOTIDINE 20 MG INJ IV (09:16)
[2017-12-29] MEDS ORDERED: traMADol 50 MG TAB PO (11:00)
[2017-12-29] MEDS: hydrALAzine 20 MG INJ IV (11:20)
[2017-12-29] MEDS: ENALAPRILAT 1.25 MG INJ IV (14:39)
[2017-12-29] MEDS ORDERED: LABETALOL HCL 20MG INJ IV (16:00)
[2017-12-29] MEDS: [UNRECOGNIZED DRUG - OTHER] XX (17:30)
[2017-12-29] MEDS: DOXAZOSIN 2 MG TAB PO (20:45)
[2017-12-29] MEDS: LABETALOL 100 MG TAB PO (20:46)
[2017-12-29] MEDS: INSULIN GLARGINE [LANTus] (100 UNITS/ML) SYG SC (20:48)
[2017-12-29] MEDS ORDERED: MINOXIDIL 2.5 MG TAB PO (21:00)
[2017-12-29] MEDS ORDERED: NIFEdipine (XL) 60 MG TAB PO (21:00)
[2017-12-30] MEDS: ACCU-CHEK XX (02:15)
[2017-12-30 04:58] LABS: ADD MAN DIFF? NO
[2017-12-30 05:03] LABS: ABNORMAL IP MESSAGE 1; BASOPHILS % 0.2 % (0.0-2.0); EOSINOPHILS # 0.1 10^3/ul (0.0-0.5); EOSINOPHILS % 2.4 % (0.0-7.0); HEMATOCRIT 32.2 % (37.0-47.0); HEMOGLOBIN 10.3 g/dl (12.0-16.0); LYMPHOCYTES # 0.5 10^3/ul (0.8-2.9); LYMPHOCYTES % 12.5 % (15.0-51.0); MEAN CORPUSCULAR HEMOGLOBIN 29.7 pg (29.0-33.0); MEAN CORPUSCULAR VOLUME 92.8 fl (82.0-101.0); MEAN PLATELET VOLUME 12.3 fl (7.4-10.4); MONOCYTE # 0.3 10^3/ul (0.3-0.9); MONOCYTES % 6.4 % (0.0-11.0); NEUTROPHIL # 3.3 10^3/ul (1.6-7.5); NEUTROPHILS % 78.3 % (39.0-77.0); PLATELET COUNT 142 10^3/UL (140-415); RED BLOOD COUNT 3.47 10^6/ul (4.20-5.40)
[2017-12-30 05:03] LABS: WHITE BLOOD COUNT 4.2 10^3/ul (4.8-10.8)
[2017-12-30 05:09] LABS: POSITIVE DIFF @See below
[2017-12-30 05:53] LABS: ANION GAP 14 (8-16); BLOOD UREA NITROGEN 41 mg/dl (7-20); CALCIUM 8.9 mg/dl (8.4-10.2); CARBON DIOXIDE 27 mmol/L (21-31); CHLORIDE 102 mmol/L (97-110); GLUCOSE 92 mg/dl (70-220); POTASSIUM 5.3 mmol/L (3.5-5.1); SODIUM 138 mmol/L (135-144)
[2017-12-30 05:57] LABS: PHOSPHORUS 5.9 mg/dl (2.5-4.9)
[2017-12-30 05:57] LABS: MAGNESIUM 2.3 mg/dl (1.7-2.5)
[2017-12-30] MEDS: ENALAPRILAT 1.25 MG INJ IV (06:06)
[2017-12-30] MEDS: INSULIN ASPART [NOVOLOG] 3 ML PEN SC ×4 (07:35→12:28)
[2017-12-30] MEDS: CALCIUM ACETATE 667 MG CAP PO ×2 (08:07→12:26)
[2017-12-30] MEDS: FAMOTIDINE 20 MG INJ IV (08:26)
[2017-12-30] MEDS: CLOPIDOGREL 75 MG TAB PO (08:26)
[2017-12-30] MEDS: MULTIVIT/CA CARB/B CMPLX/FA TAB PO (08:26)
[2017-12-30] MEDS: DOXAZOSIN 2 MG TAB PO (08:28)
[2017-12-30] MEDS: LOSARTAN 50 MG TAB PO ×2 (08:28→08:36)
[2017-12-30] MEDS: HEPARIN 5,000 UNIT/0.5 ML VIAL SC (08:30)
[2017-12-30] MEDS: LABETALOL 100 MG TAB PO ×2 (08:31→12:31)
[2017-12-30 09:51] LABS: HEPATITIS B SURFACE ANTIGEN NEGATIVE (NEGATIVE)
[2017-12-30] MEDS: HEPARIN 1000 UNITS/ML 10 ML INJ CATHETER (12:25)
== END 2017-12-30 15:55 | disposition home or self-care (01) | DRG 304 ==
LOC: E/R 16:12 → ICU 17:25
PROC: 5A1D70Z Performance of Urinary Filtration, Intermittent, Less than 6 Hours Per Day (ICD-10-PCS; principal; 2017-12-29)
DX: I16.0 Hypertensive urgency (principal); N18.6 End stage renal disease; I67.4 Hypertensive encephalopathy; I50.30 Unspecified diastolic (congestive) heart failure; I13.2 Hypertensive heart and chronic kidney disease with heart failure and with stage 5 chronic kidney disease, or end stage renal disease; E87.5 Hyperkalemia; Z91.15 Patient's noncompliance with renal dialysis; F41.9 Anxiety disorder, unspecified; R11.2 Nausea with vomiting, unspecified; E11.9 Type 2 diabetes mellitus without complications; Z86.73 Personal history of transient ischemic attack (TIA), and cerebral infarction without residual deficits; Z99.2 Dependence on renal dialysis
CPT/HCPCS: 36415; 70450; 80048; 80053; 82550; 82553; 82962; 83690; 83735; 84100; 84484; 85025; 87081; 87340; 90935; 93005; 96365; 99291-25

== ENCOUNTER 2018-01-05 04:24 | Emergency (ER) | payer OTHER ==
[2018-01-05 04:54] LABS: ADD MAN DIFF? NO
[2018-01-05 04:55] LABS: WHITE BLOOD COUNT 4.1 10^3/ul (4.8-10.8)
[2018-01-05 04:55] LABS: BASOPHILS % 0.2 % (0.0-2.0); EOSINOPHILS # 0.1 10^3/ul (0.0-0.5); EOSINOPHILS % 2.5 % (0.0-7.0); HEMOGLOBIN 10.3 g/dl (12.0-16.0); LYMPHOCYTES # 0.7 10^3/ul (0.8-2.9); LYMPHOCYTES % 18.2 % (15.0-51.0); MEAN CORPUSCULAR HEMOGLOBIN 29.4 pg (29.0-33.0); MEAN CORPUSCULAR HGB CONC 32.2 g/dl (32.0-37.0); MEAN CORPUSCULAR VOLUME 91.4 fl (82.0-101.0); MEAN PLATELET VOLUME 11.4 fl (7.4-10.4); MONOCYTE # 0.3 10^3/ul (0.3-0.9); MONOCYTES % 8.4 % (0.0-11.0); NEUTROPHIL # 2.8 10^3/ul (1.6-7.5); NEUTROPHILS % 69.2 % (39.0-77.0); PLATELET COUNT 205 10^3/UL (140-415)
[2018-01-05 05:12] LABS: ANION GAP 17 (8-16); BLOOD UREA NITROGEN 39 mg/dl (7-20); CALCIUM 10.1 mg/dl (8.4-10.2); CARBON DIOXIDE 24 mmol/L (21-31); CHLORIDE 99 mmol/L (97-110); CREATINE KINASE 45 IU/L (23-200); GLUCOSE 145 mg/dl (70-220); POTASSIUM 4.2 mmol/L (3.5-5.1); SODIUM 136 mmol/L (135-144)
[2018-01-05 05:20] LABS: CREATININE 7.96 mg/dl (0.44-1.00)
[2018-01-05 05:24] LABS: TROPONIN-I 0.018 ng/ml (0.000-0.120)
[2018-01-05 05:25] LABS: CK INDEX 1.4; CK-MB 0.65 ng/ml (0.0-2.4)
[2018-01-05] MEDS: ALPRAZOLAM 0.25 MG TAB PO (05:42)
== END 2018-01-05 06:30 | disposition home or self-care (01) ==
LOC: E/R 04:24
DX: F41.9 Anxiety disorder, unspecified (principal); I50.9 Heart failure, unspecified; Z72.89 Other problems related to lifestyle; Z99.2 Dependence on renal dialysis
CPT/HCPCS: 36415; 71045; 80048; 82550; 82553; 84484; 85025; 93005; 99285-25

== ENCOUNTER 2018-04-07 09:41 | Emergency (ER) | payer OTHER ==
[2018-04-07 10:49] LABS: ADD MAN DIFF? NO
[2018-04-07] MEDS: ONDANSETRON 4 MG INJ IV ×3 (10:49→15:37)
[2018-04-07] MEDS: ASPIRIN 325 MG TAB PO (10:49)
[2018-04-07] MEDS: morphine 4 MG/ML VIAL IV (10:50)
[2018-04-07] MEDS: NITROGLYCERIN 2% 1 GM OINT PKT TD (10:51)
[2018-04-07] MEDS: LORAZEPAM 2 MG INJ IV ×2 (11:53→16:45)
[2018-04-07] MEDS: hydrALAzine 20 MG INJ IV ×2 (11:54→12:16)
[2018-04-07 12:10] LABS: ABNORMAL IP MESSAGE 1; BASOPHILS % 0.4 % (0.0-2.0); EOSINOPHILS # 0.1 10^3/ul (0.0-0.5); HEMATOCRIT 35.3 % (37.0-47.0); HEMOGLOBIN 11.9 g/dl (12.0-16.0); LYMPHOCYTES # 0.5 10^3/ul (0.8-2.9); LYMPHOCYTES % 11.9 % (15.0-51.0); MEAN CORPUSCULAR HEMOGLOBIN 30.8 pg (29.0-33.0); MEAN CORPUSCULAR HGB CONC 33.7 g/dl (32.0-37.0); MEAN CORPUSCULAR VOLUME 91.5 fl (82.0-101.0); MEAN PLATELET VOLUME 11.9 fl (7.4-10.4); MONOCYTE # 0.3 10^3/ul (0.3-0.9); NEUTROPHIL # 3.5 10^3/ul (1.6-7.5); NEUTROPHILS % 78.5 % (39.0-77.0); PLATELET COUNT 110 10^3/UL (140-415); RED BLOOD COUNT 3.86 10^6/ul (4.20-5.40); RED CELL DISTRIBUTION WIDTH 14.1 % (11.5-14.5)
[2018-04-07 12:10] LABS: WHITE BLOOD COUNT 4.5 10^3/ul (4.8-10.8)
[2018-04-07 12:12] LABS: POSITIVE DIFF @See below
[2018-04-07 12:17] LABS: ALANINE AMINOTRANSFERASE 18 IU/L (13-69); ALBUMIN 4.4 g/dl (3.3-4.9); ALBUMIN/GLOBULIN RATIO 1.29; ALKALINE PHOSPHATASE 85 IU/L (42-121); ANION GAP 17 (5-13); ASPARTATE AMINO TRANSFERASE 21 IU/L (15-46); BILIRUBIN,INDIRECT 0.1 mg/dl (0-1.1); BILIRUBIN,TOTAL 0.1 mg/dl (0.2-1.3); BLOOD UREA NITROGEN 96 mg/dl (7-20); CALCIUM 8.2 mg/dl (8.4-10.2); CARBON DIOXIDE 19 mmol/L (21-31); CHLORIDE 101 mmol/L (97-110); CREATINE KINASE 81 IU/L (23-200); GLUCOSE 136 mg/dl (70-220); SODIUM 137 mmol/L (135-144); TOTAL PROTEIN 7.8 g/dl (6.1-8.1)
[2018-04-07] MEDS: HYDROmorphONE 2 MG/ML SYG IV (12:20)
[2018-04-07 12:22] LABS: INR 1.02; PROTIME 13.5 Sec (11.9-14.9); PT RATIO 1.1
[2018-04-07 12:23] LABS: Estimated GFR 3 mL/min (>60); PARTIAL THROMBOPLASTIN TIME 36.3 Sec (23.0-35.0)
[2018-04-07 12:28] LABS: CREATININE 13.41 mg/dl (0.44-1.00)
[2018-04-07 12:29] LABS: CK INDEX 1.1; CK-MB 0.93 ng/ml (0.0-2.4)
[2018-04-07 12:52] LABS: B-TYPE NATRIURETIC PEPTIDE 38400 PG/ML (0-125)
[2018-04-07] MEDS ORDERED: ONDANSETRON 4 MG INJ IV (13:00)
[2018-04-07] MEDS ORDERED: ACETAMINOPHEN 325 MG TAB PO (13:00)
[2018-04-07] MEDS ORDERED: ALBUTEROL 0.5% (NEB) 2.5 MG/0.5 ML AMP INH (13:46)
[2018-04-07] MEDS: NA BICARBONATE 8.4% 50 ML SYG IV (14:05)
[2018-04-07] MEDS: FUROSEMIDE 40 MG INJ IV (14:05)
[2018-04-07] MEDS: CA CHLORIDE 10% 10 ML SYRINGE IV (14:06)
[2018-04-07] MEDS: NA POLYST SULFON 15 GM/60 ML BTL PO (14:06)
[2018-04-07] MEDS: HYDROmorphONE 0.5 MG/0.5 ML SYG IV (15:36)
[2018-04-07] MEDS: LABETALOL HCL 20MG INJ IV (15:37)
== END 2018-04-07 16:48 | disposition short-term general hospital (02) ==
LOC: E/R 09:41
DX: R07.9 Chest pain, unspecified (principal); I16.1 Hypertensive emergency; E87.5 Hyperkalemia; N18.9 Chronic kidney disease, unspecified; N17.9 Acute kidney failure, unspecified; I50.9 Heart failure, unspecified; E11.9 Type 2 diabetes mellitus without complications; Z99.2 Dependence on renal dialysis; Z79.4 Long term (current) use of insulin; Z79.01 Long term (current) use of anticoagulants
CPT/HCPCS: 71045; 80053; 82550; 82553; 83880; 84484; 85025; 85610; 85730; 93005; 96374; 96375; 96376; 99291-25

== ENCOUNTER 2018-05-02 17:13 | Emergency (ER) | payer OTHER ==
[2018-05-02] MEDS: OXYCODONE/ACETAMINOPHEN (5/325) TAB PO (21:19)
[2018-05-02] MEDS: ONDANSETRON 4 MG INJ IV (21:19)
[2018-05-02] MEDS: KETOROLAC 15 MG INJ IV (21:19)
[2018-05-02 21:23] LABS: ADD MAN DIFF? NO
[2018-05-02 21:27] LABS: ABNORMAL IP MESSAGE 1; BASOPHILS % 0.4 % (0.0-2.0); EOSINOPHILS % 0.2 % (0.0-7.0); HEMATOCRIT 34.1 % (37.0-47.0); LYMPHOCYTES # 0.4 10^3/ul (0.8-2.9); LYMPHOCYTES % 9.3 % (15.0-51.0); MEAN CORPUSCULAR HEMOGLOBIN 30.1 pg (29.0-33.0); MEAN CORPUSCULAR HGB CONC 32.3 g/dl (32.0-37.0); MEAN CORPUSCULAR VOLUME 93.2 fl (82.0-101.0); MEAN PLATELET VOLUME 12.1 fl (7.4-10.4); MONOCYTE # 0.1 10^3/ul (0.3-0.9); NEUTROPHIL # 3.8 10^3/ul (1.6-7.5); NEUTROPHILS % 84.6 % (39.0-77.0); NUCLEATED RED BLOOD CELLS% 0.9 /100WBC (0.0-0.0); PLATELET COUNT 189 10^3/UL (140-415); RED BLOOD COUNT 3.66 10^6/ul (4.20-5.40); RED CELL DISTRIBUTION WIDTH 15.1 % (11.5-14.5)
[2018-05-02 21:27] LABS: WHITE BLOOD COUNT 4.5 10^3/ul (4.8-10.8)
[2018-05-02 21:30] LABS: POSITIVE DIFF @See below
[2018-05-02 21:31] LABS: INR 0.92; PROTIME 12.5 Sec (11.9-14.9)
[2018-05-02 21:32] LABS: PARTIAL THROMBOPLASTIN TIME 34.4 Sec (23.0-35.0)
[2018-05-02 21:45] LABS: ALANINE AMINOTRANSFERASE 18 IU/L (13-69); ALBUMIN 5.1 g/dl (3.3-4.9); ALBUMIN/GLOBULIN RATIO 1.34; ALKALINE PHOSPHATASE 141 IU/L (42-121); ANION GAP 20 (5-13); ASPARTATE AMINO TRANSFERASE 27 IU/L (15-46); BILIRUBIN,INDIRECT 0.1 mg/dl (0-1.1); BILIRUBIN,TOTAL 0.1 mg/dl (0.2-1.3); BLOOD UREA NITROGEN 48 mg/dl (7-20); CARBON DIOXIDE 25 mmol/L (21-31); CHLORIDE 97 mmol/L (97-110); CREATININE 11.88 mg/dl (0.44-1.00); Estimated GFR 3 mL/min (>60); GLUCOSE 255 mg/dl (70-220); LIPASE 36 U/L (23-300); POTASSIUM 5.8 mmol/L (3.5-5.1); SODIUM 142 mmol/L (135-144); TOTAL PROTEIN 8.9 g/dl (6.1-8.1)
[2018-05-02] MEDS: ALBUTEROL 0.083% (NEB) 2.5 MG/3 ML AMP HHN (22:31)
[2018-05-03] MEDS: IBUPROFEN 600 MG TAB PO (00:23)
== END 2018-05-03 01:31 | disposition short-term general hospital (02) ==
LOC: E/R 17:13
DX: K80.00 Calculus of gallbladder with acute cholecystitis without obstruction (principal); I13.2 Hypertensive heart and chronic kidney disease with heart failure and with stage 5 chronic kidney disease, or end stage renal disease; N18.6 End stage renal disease; I50.9 Heart failure, unspecified; E11.22 Type 2 diabetes mellitus with diabetic chronic kidney disease; Z79.4 Long term (current) use of insulin; Z86.73 Personal history of transient ischemic attack (TIA), and cerebral infarction without residual deficits; Z99.2 Dependence on renal dialysis
CPT/HCPCS: 36415; 76705; 80053; 83690; 85025; 85610; 85730; 93005; 94664; 96374; 96375; 99285-25

== ENCOUNTER 2018-05-11 17:18 | Emergency (ER) | payer OTHER ==
[2018-05-11 18:21] LABS: ABNORMAL IP MESSAGE 1; HEMATOCRIT 29.3 % (37.0-47.0); HEMOGLOBIN 9.9 g/dl (12.0-16.0); MEAN CORPUSCULAR HEMOGLOBIN 30.2 pg (29.0-33.0); MEAN CORPUSCULAR HGB CONC 33.8 g/dl (32.0-37.0); MEAN CORPUSCULAR VOLUME 89.3 fl (82.0-101.0); MEAN PLATELET VOLUME 12.5 fl (7.4-10.4); PLATELET COUNT 94 10^3/UL (140-415); RED BLOOD COUNT 3.28 10^6/ul (4.20-5.40); RED CELL DISTRIBUTION WIDTH 14.8 % (11.5-14.5)
[2018-05-11 18:21] LABS: WHITE BLOOD COUNT 4.4 10^3/ul (4.8-10.8)
[2018-05-11 18:26] LABS: ADD MAN DIFF? YES; POSITIVE DIFF @See below
[2018-05-11 18:38] LABS: ALANINE AMINOTRANSFERASE 16 IU/L (13-69); ALBUMIN 3.9 g/dl (3.3-4.9); ALKALINE PHOSPHATASE 97 IU/L (42-121); ANION GAP 14 (5-13); ASPARTATE AMINO TRANSFERASE 52 IU/L (15-46); BILIRUBIN,INDIRECT 0.1 mg/dl (0-1.1); BILIRUBIN,TOTAL 0.1 mg/dl (0.2-1.3); BLOOD UREA NITROGEN 57 mg/dl (7-20); CARBON DIOXIDE 23 mmol/L (21-31); CHLORIDE 97 mmol/L (97-110); GLUCOSE 98 mg/dl (70-220); LIPASE 115 U/L (23-300); SODIUM 134 mmol/L (135-144); TOTAL PROTEIN 6.9 g/dl (6.1-8.1)
[2018-05-11 18:42] LABS: INR 1.02; PROTIME 13.5 Sec (11.9-14.9); PT RATIO 1.1
[2018-05-11 18:44] LABS: CREATININE 11.54 mg/dl (0.44-1.00); Estimated GFR 4 mL/min (>60)
[2018-05-11 18:45] LABS: PARTIAL THROMBOPLASTIN TIME 29.5 Sec (23.0-35.0)
[2018-05-11 18:55] LABS: ANISOCYTOSIS 1+ (0-0); BAND NEUTROPHILS #M 0.3 10^3/ul (0.0-0.6); BAND NEUTROPHILS % (M) 7 % (0-4); EOSINOPHILS % (M) 2 % (0-7); GIANT THROMBO% (M) 7 % (0-0); LYMPHOCYTES % (M) 23 % (15-51); METAMYELOCYTES #M 0.1 10^3/ul (0.0-0.0); METAMYELOCYTES %M 4 % (0-0); MONOCYTE #M 0.1 10^3/ul (0.3-0.9); MONOCYTES % (M) 4 % (0-11); MYELOCYTES #M 0.2 10^3/ul (0.0-0.0); MYELOCYTES % (M) 5 % (0-0); PLATELET ESTIMATE DECREASED; PLATELET MORPHOLOGY COMMENT @See below; POIKILOCYTOSIS 1+ (0-0); POLYCHROMASIA 1+ (0-0); SEG NEUT #M 2.4 10^3/ul (1.6-7.5); SEGMENTED NEUTROPHILS (M) % 55 % (39-77); SMUDGE%M 4 % (0-0); TARGET CELLS 1+ (0-0)
[2018-05-11] MEDS: hydrALAzine 20 MG INJ IV (19:50)
== END 2018-05-11 21:29 | disposition short-term general hospital (02) ==
LOC: E/R 17:18
DX: D61.818 Other pancytopenia (principal); I12.0 Hypertensive chronic kidney disease with stage 5 chronic kidney disease or end stage renal disease; N18.6 End stage renal disease; I16.0 Hypertensive urgency; E11.22 Type 2 diabetes mellitus with diabetic chronic kidney disease; Z99.2 Dependence on renal dialysis; Z79.4 Long term (current) use of insulin; Z79.01 Long term (current) use of anticoagulants
CPT/HCPCS: 36415; 71045; 74176; 80053; 83690; 84703; 85025; 85610; 85730; 93005; 96374; 99285-25

== ENCOUNTER 2018-10-17 19:13 | Inpatient (IN) | payer OTHER ==
[2018-10-17] MEDS ORDERED: NITROGLYCERIN 50 MG/D5W (PMX) 250 ML (19:25)
[2018-10-17] MEDS: ONDANSETRON 4 MG INJ IV (19:35)
[2018-10-17] MEDS: NITROGLYCERIN 50 MG/D5W (PMX) 250 ML IV (19:36)
[2018-10-17] MEDS: LORAZEPAM 2 MG INJ IV (19:36)
[2018-10-17 19:41] LABS: ADD MAN DIFF? NO
[2018-10-17 19:42] LABS: WHITE BLOOD COUNT 5.5 10^3/ul (4.8-10.8)
[2018-10-17 19:42] LABS: BASOPHILS % 0.2 % (0.0-2.0); EOSINOPHILS # 0.1 10^3/ul (0.0-0.5); HEMATOCRIT 33.7 % (37.0-47.0); HEMOGLOBIN 11.2 g/dl (12.0-16.0); LYMPHOCYTES # 0.8 10^3/ul (0.8-2.9); LYMPHOCYTES % 15.1 % (15.0-51.0); MEAN CORPUSCULAR HEMOGLOBIN 30.4 pg (29.0-33.0); MEAN CORPUSCULAR HGB CONC 33.2 g/dl (32.0-37.0); MEAN CORPUSCULAR VOLUME 91.6 fl (82.0-101.0); MEAN PLATELET VOLUME 10.7 fl (7.4-10.4); MONOCYTE # 0.3 10^3/ul (0.3-0.9); MONOCYTES % 5.6 % (0.0-11.0); NEUTROPHIL # 4.2 10^3/ul (1.6-7.5); NEUTROPHILS % 76.6 % (39.0-77.0); PLATELET COUNT 184 10^3/UL (140-415); RED BLOOD COUNT 3.68 10^6/ul (4.20-5.40)
[2018-10-17 20:01] LABS: INR 1.06; PROTIME 13.9 Sec (11.9-14.9); PT RATIO 1.1
[2018-10-17 20:05] LABS: ANION GAP 18 (5-13); BLOOD UREA NITROGEN 31 mg/dl (7-20); CALCIUM 9.7 mg/dl (8.4-10.2); CARBON DIOXIDE 25 mmol/L (21-31); CHLORIDE 96 mmol/L (97-110); CREATININE 6.99 mg/dl (0.44-1.00); Estimated GFR 6 mL/min (>60); GLUCOSE 106 mg/dl (70-220); SODIUM 139 mmol/L (135-144)
[2018-10-17 20:17] LABS: TROPONIN-I 0.083 ng/ml (0.000-0.120)
[2018-10-17] MEDS: morphine 2 MG INJ IV ×2 (20:19→23:37)
[2018-10-17] MEDS: HYDROmorphONE 0.5 MG/0.5 ML SYG IV (21:24)
[2018-10-17] MEDS: PIPER-TAZO 2.25 GM (PMX) 50 ML IVPB (21:28)
[2018-10-17] MEDS: VANCOMYCIN 1 GM (PMX) 250 ML IVPB (21:55)
[2018-10-17] MEDS ORDERED: HYDROCODONE/APAP (5/325) TAB PO (23:30)
[2018-10-18] MEDS: ONDANSETRON 4 MG INJ IV ×3 (00:16→08:53)
[2018-10-18 02:25] LABS: HEPATITIS B SURFACE ANTIGEN NEGATIVE (NEGATIVE)
[2018-10-18] MEDS: morphine 2 MG INJ IV ×3 (02:35→10:50)
[2018-10-18] MEDS: NITROGLYCERIN 50 MG/D5W (PMX) 250 ML IV ×6 (03:39→15:05)
[2018-10-18] MEDS: HYDROmorphONE 0.5 MG/0.5 ML SYG IV ×2 (03:45→08:54)
[2018-10-18] MEDS: DOXAZOSIN 2 MG TAB PO (04:53)
[2018-10-18] MEDS: GABAPENTIN 100 MG CAP PO ×3 (04:53→21:00)
[2018-10-18 05:41] LABS: TROPONIN-I 0.083 ng/ml (0.000-0.120)
[2018-10-18] MEDS: HEPARIN 1000 UNITS/ML 10 ML INJ CATHETER (05:49)
[2018-10-18] MEDS: MINOXIDIL 2.5 MG TAB PO ×2 (06:00→06:27)
[2018-10-18] MEDS: CALCIUM ACETATE 667 MG CAP PO ×3 (08:27→17:35)
[2018-10-18] MEDS: CLOPIDOGREL 75 MG TAB PO (08:27)
[2018-10-18] MEDS: LABETALOL 200 MG TAB PO (08:27)
[2018-10-18] MEDS: AZITHROMYCIN 500 MG TAB PO (08:27)
[2018-10-18] MEDS: LOSARTAN 50 MG TAB PO (08:27)
[2018-10-18] MEDS: AMLODIPINE 5 MG TAB PO (08:28)
[2018-10-18] MEDS: PANTOPRAZOLE (EC) 40 MG TAB PO (08:28)
[2018-10-18] MEDS: CEFTRIAXONE 1 GM/50 ML (PMX) 50 ML IVPB (08:29)
[2018-10-18 08:35] LABS: ADD MAN DIFF? NO
[2018-10-18 08:38] LABS: ABNORMAL IP MESSAGE 1; BASOPHILS % 0.4 % (0.0-2.0); EOSINOPHILS # 0.1 10^3/ul (0.0-0.5); EOSINOPHILS % 1.4 % (0.0-7.0); HEMATOCRIT 27.6 % (37.0-47.0); HEMOGLOBIN 9.3 g/dl (12.0-16.0); LYMPHOCYTES # 0.3 10^3/ul (0.8-2.9); LYMPHOCYTES % 5.6 % (15.0-51.0); MEAN CORPUSCULAR HEMOGLOBIN 30.9 pg (29.0-33.0); MEAN CORPUSCULAR HGB CONC 33.7 g/dl (32.0-37.0); MEAN CORPUSCULAR VOLUME 91.7 fl (82.0-101.0); MEAN PLATELET VOLUME 10.6 fl (7.4-10.4); MONOCYTE # 0.4 10^3/ul (0.3-0.9); MONOCYTES % 8.1 % (0.0-11.0); NEUTROPHIL # 4.4 10^3/ul (1.6-7.5); NEUTROPHILS % 83.9 % (39.0-77.0); PLATELET COUNT 162 10^3/UL (140-415); RED BLOOD COUNT 3.01 10^6/ul (4.20-5.40); RED CELL DISTRIBUTION WIDTH 14.7 % (11.5-14.5)
[2018-10-18 08:38] LABS: WHITE BLOOD COUNT 5.2 10^3/ul (4.8-10.8)
[2018-10-18 08:40] LABS: POSITIVE DIFF @See below
[2018-10-18] MEDS: CLONIDINE 0.3 MG/24 HR PATCH TRANSDERM (08:45)
[2018-10-18] MEDS: INSULIN GLARGINE [LANTus] (100 UNITS/ML) SYG SC (08:49)
[2018-10-18] MEDS: hydrALAzine 20 MG INJ IV ×4 (08:53→23:34)
[2018-10-18] MEDS: DOXAZOSIN 4 MG TAB PO ×2 (08:53→21:00)
[2018-10-18] MEDS: LEVOTHYROXINE 25 MCG TAB PO (08:53)
[2018-10-18] MEDS ORDERED: LOSARTAN 50 MG TAB PO (09:00)
[2018-10-18] MEDS ORDERED: INSULIN GLARGINE [LANtus] 3 ML PEN SC (09:00)
[2018-10-18 09:02] LABS: ANION GAP 12 (5-13); BLOOD UREA NITROGEN 14 mg/dl (7-20); CALCIUM 8.7 mg/dl (8.4-10.2); CARBON DIOXIDE 28 mmol/L (21-31); CHLORIDE 96 mmol/L (97-110); CREATININE 3.89 mg/dl (0.44-1.00); Estimated GFR 12 mL/min (>60); GLUCOSE 156 mg/dl (70-220); POTASSIUM 3.7 mmol/L (3.5-5.1); SODIUM 136 mmol/L (135-144)
[2018-10-18] MEDS ORDERED: DEXTROSE 50% 50 ML SYRINGE IV ×2 (11:00)
[2018-10-18] MEDS ORDERED: GLUCOSE GEL 15 GRAM TUBE BUCCAL (11:00)
[2018-10-18] MEDS ORDERED: GLUCOSE GEL 15 GRAM TUBE PO ×2 (11:00)
[2018-10-18] MEDS ORDERED: GLUCAGON 1 MG INJ IM (11:00)
[2018-10-18 11:18] LABS: ALANINE AMINOTRANSFERASE 17 IU/L (13-69); ALBUMIN 3.8 g/dl (3.3-4.9); ALKALINE PHOSPHATASE 112 IU/L (42-121); ASPARTATE AMINO TRANSFERASE 21 IU/L (15-46); BILIRUBIN,INDIRECT 0.8 mg/dl (0-1.1); BILIRUBIN,TOTAL 0.8 mg/dl (0.2-1.3); TOTAL PROTEIN 6.9 g/dl (6.1-8.1)
[2018-10-18 11:18] LABS: LIPASE 17 U/L (23-300)
[2018-10-18 11:19] LABS: CALCIUM 8.8 mg/dl (8.4-10.2)
[2018-10-18] MEDS: INSULIN ASPART [NOVOLOG] 3 ML PEN SC ×3 (11:30→21:00)
[2018-10-18] MEDS ORDERED: BISACODYL 10 MG SUPP PR (12:30)
[2018-10-18] MEDS: DIPHENHYDRAMINE 50 MG INJ IV (12:50)
[2018-10-18] MEDS: LABETALOL HCL 20MG INJ IV ×3 (13:54→20:28)
[2018-10-19] MEDS: LABETALOL HCL 20MG INJ IV ×4 (01:00→20:49)
[2018-10-19] MEDS: VANCOMYCIN 1 GM (PMX) 250 ML IVPB (01:52)
[2018-10-19] MEDS: ACCU-CHEK XX (02:00)
[2018-10-19] MEDS: hydrALAzine 20 MG INJ IV ×4 (03:03→23:53)
[2018-10-19] MEDS: NITROGLYCERIN 50 MG/D5W (PMX) 250 ML IV ×4 (03:49→22:20)
[2018-10-19 05:14] LABS: ADD MAN DIFF? NO
[2018-10-19 05:18] LABS: WHITE BLOOD COUNT 5.3 10^3/ul (4.8-10.8)
[2018-10-19 05:18] LABS: ABNORMAL IP MESSAGE 1; BASOPHILS % 0.4 % (0.0-2.0); EOSINOPHILS # 0.1 10^3/ul (0.0-0.5); EOSINOPHILS % 1.3 % (0.0-7.0); HEMATOCRIT 29.4 % (37.0-47.0); HEMOGLOBIN 9.6 g/dl (12.0-16.0); LYMPHOCYTES # 0.3 10^3/ul (0.8-2.9); LYMPHOCYTES % 6.4 % (15.0-51.0); MEAN CORPUSCULAR HEMOGLOBIN 30.6 pg (29.0-33.0); MEAN CORPUSCULAR HGB CONC 32.7 g/dl (32.0-37.0); MEAN CORPUSCULAR VOLUME 93.6 fl (82.0-101.0); MEAN PLATELET VOLUME 10.9 fl (7.4-10.4); MONOCYTE # 0.4 10^3/ul (0.3-0.9); MONOCYTES % 7.4 % (0.0-11.0); NEUTROPHIL # 4.4 10^3/ul (1.6-7.5); NEUTROPHILS % 83.6 % (39.0-77.0); PLATELET COUNT 175 10^3/UL (140-415); RED BLOOD COUNT 3.14 10^6/ul (4.20-5.40); RED CELL DISTRIBUTION WIDTH 15.1 % (11.5-14.5)
[2018-10-19 05:24] LABS: POSITIVE DIFF @See below
[2018-10-19 05:31] LABS: ANION GAP 14 (5-13); BLOOD UREA NITROGEN 21 mg/dl (7-20); CALCIUM 8.9 mg/dl (8.4-10.2); CARBON DIOXIDE 28 mmol/L (21-31); CHLORIDE 96 mmol/L (97-110); Estimated GFR 8 mL/min (>60); GLUCOSE 120 mg/dl (70-220); SODIUM 138 mmol/L (135-144)
[2018-10-19] MEDS: LEVOTHYROXINE 25 MCG TAB PO ×2 (06:29→08:32)
[2018-10-19] MEDS: PANTOPRAZOLE (EC) 40 MG TAB PO ×2 (06:29→08:32)
[2018-10-19] MEDS: INSULIN ASPART [NOVOLOG] 3 ML PEN SC ×4 (07:35→20:48)
[2018-10-19] MEDS: ONDANSETRON 4 MG INJ IV (08:18)
[2018-10-19] MEDS: CEFTRIAXONE 1 GM/50 ML (PMX) 50 ML IVPB (08:24)
[2018-10-19] MEDS: CALCIUM ACETATE 667 MG CAP PO ×3 (08:32→18:04)
[2018-10-19] MEDS: GABAPENTIN 100 MG CAP PO ×2 (08:34→20:50)
[2018-10-19] MEDS: DOXAZOSIN 4 MG TAB PO ×2 (08:35→20:50)
[2018-10-19] MEDS: CLOPIDOGREL 75 MG TAB PO (08:35)
[2018-10-19] MEDS: LOSARTAN 50 MG TAB PO (08:35)
[2018-10-19] MEDS: AZITHROMYCIN 500 MG TAB PO (08:36)
[2018-10-19] MEDS: INSULIN GLARGINE [LANTus] (100 UNITS/ML) SYG SC (09:14)
[2018-10-19] MEDS: METOCLOPRAMIDE 10 MG INJ IV (10:02)
[2018-10-19] MEDS: AMLODIPINE 5 MG TAB PO ×2 (10:41→20:50)
[2018-10-19] MEDS: HEPARIN 1000 UNITS/ML 10 ML INJ CATHETER (14:24)
[2018-10-19] MEDS: LACTULOSE 30ML CUP PO ×3 (15:00→21:27)
[2018-10-20] MEDS: ACCU-CHEK XX (02:00)
[2018-10-20] MEDS: NITROGLYCERIN 50 MG/D5W (PMX) 250 ML IV ×5 (02:55→18:17)
[2018-10-20] MEDS: LEVOTHYROXINE 25 MCG TAB PO (06:12)
[2018-10-20] MEDS: PANTOPRAZOLE (EC) 40 MG TAB PO (06:12)
[2018-10-20] MEDS: INSULIN ASPART [NOVOLOG] 3 ML PEN SC ×4 (07:35→20:24)
[2018-10-20] MEDS: AZITHROMYCIN 500 MG TAB PO (09:51)
[2018-10-20] MEDS: CALCIUM ACETATE 667 MG CAP PO ×3 (09:51→16:39)
[2018-10-20] MEDS: GABAPENTIN 100 MG CAP PO ×2 (09:51→20:13)
[2018-10-20] MEDS: CLOPIDOGREL 75 MG TAB PO (09:51)
[2018-10-20] MEDS: CEFTRIAXONE 1 GM/50 ML (PMX) 50 ML IVPB (09:52)
[2018-10-20] MEDS: AMLODIPINE 5 MG TAB PO ×2 (09:52→20:12)
[2018-10-20] MEDS: LOSARTAN 50 MG TAB PO ×3 (09:52→20:13)
[2018-10-20] MEDS: DOXAZOSIN 4 MG TAB PO ×2 (09:52→20:13)
[2018-10-20] MEDS: INSULIN GLARGINE [LANTus] (100 UNITS/ML) SYG SC (10:06)
[2018-10-20] MEDS: HEPARIN 1000 UNITS/ML 10 ML INJ CATHETER ×2 (16:37→16:38)
[2018-10-20] MEDS: LABETALOL HCL 20MG INJ IV (21:29)
[2018-10-21] MEDS: NITROGLYCERIN 50 MG/D5W (PMX) 250 ML IV ×6 (00:13→19:53)
[2018-10-21] MEDS: hydrALAzine 20 MG INJ IV ×3 (00:14→09:35)
[2018-10-21] MEDS: LABETALOL HCL 20MG INJ IV (02:25)
[2018-10-21] MEDS: ACCU-CHEK XX (02:31)
[2018-10-21] MEDS: LEVOTHYROXINE 25 MCG TAB PO (06:32)
[2018-10-21] MEDS: PANTOPRAZOLE (EC) 40 MG TAB PO (06:32)
[2018-10-21] MEDS: INSULIN ASPART [NOVOLOG] 3 ML PEN SC ×4 (07:35→21:00)
[2018-10-21] MEDS: CALCIUM ACETATE 667 MG CAP PO ×3 (08:30→18:49)
[2018-10-21] MEDS: CEFTRIAXONE 1 GM/50 ML (PMX) 50 ML IVPB (08:45)
[2018-10-21] MEDS: CLOPIDOGREL 75 MG TAB PO (08:47)
[2018-10-21] MEDS: GABAPENTIN 100 MG CAP PO ×2 (08:47→21:22)
[2018-10-21] MEDS: AMLODIPINE 5 MG TAB PO ×2 (08:47→21:21)
[2018-10-21] MEDS: DOXAZOSIN 4 MG TAB PO ×2 (08:47→21:22)
[2018-10-21] MEDS: AZITHROMYCIN 500 MG TAB PO (08:47)
[2018-10-21] MEDS: LOSARTAN 50 MG TAB PO ×2 (08:48→21:22)
[2018-10-21] MEDS: INSULIN GLARGINE [LANTus] (100 UNITS/ML) SYG SC (09:42)
[2018-10-21] MEDS: HYDROmorphONE 0.5 MG/0.5 ML SYG IV (10:49)
[2018-10-21] MEDS: HEPARIN 1000 UNITS/ML 10 ML INJ CATHETER (16:15)
[2018-10-21] MEDS: EPOETIN ALFA-EPBX (ESRD) 4,000 UNIT/ML VIAL SC (18:51)
[2018-10-21] MEDS: morphine 2 MG INJ IV (20:28)
[2018-10-21] MEDS ORDERED: HYDROCODONE/APAP (5/325) TAB PO ×2 (21:30)
[2018-10-22] MEDS: ACCU-CHEK XX (02:46)
[2018-10-22] MEDS: NITROGLYCERIN 50 MG/D5W (PMX) 250 ML IV (06:15)
[2018-10-22] MEDS: LEVOTHYROXINE 25 MCG TAB PO (06:16)
[2018-10-22] MEDS: PANTOPRAZOLE (EC) 40 MG TAB PO (06:16)
[2018-10-22] MEDS: INSULIN ASPART [NOVOLOG] 3 ML PEN SC ×4 (07:35→20:55)
[2018-10-22] MEDS: CALCIUM ACETATE 667 MG CAP PO ×3 (07:55→17:50)
[2018-10-22] MEDS: CEFTRIAXONE 1 GM/50 ML (PMX) 50 ML IVPB (09:42)
[2018-10-22] MEDS: AZITHROMYCIN 500 MG TAB PO (09:42)
[2018-10-22] MEDS: LOSARTAN 50 MG TAB PO ×2 (09:44→20:49)
[2018-10-22] MEDS: DOXAZOSIN 4 MG TAB PO ×2 (09:44→20:50)
[2018-10-22] MEDS: AMLODIPINE 5 MG TAB PO ×2 (09:44→20:50)
[2018-10-22] MEDS: CLOPIDOGREL 75 MG TAB PO (09:44)
[2018-10-22] MEDS: GABAPENTIN 100 MG CAP PO ×2 (09:44→20:49)
[2018-10-22] MEDS: INSULIN GLARGINE [LANTus] (100 UNITS/ML) SYG SC (09:56)
[2018-10-22] MEDS: ISOSORBIDE MONONITRATE(SR)30 MG TAB PO ×2 (14:11→20:48)
[2018-10-22] MEDS: hydrALAzine 20 MG INJ IV (18:52)
[2018-10-22 20:11] LABS: ADD MAN DIFF? NO
[2018-10-22 20:20] LABS: ABNORMAL IP MESSAGE 1; BASOPHILS % 0.2 % (0.0-2.0); EOSINOPHILS # 0.2 10^3/ul (0.0-0.5); EOSINOPHILS % 2.7 % (0.0-7.0); HEMATOCRIT 33.8 % (37.0-47.0); HEMOGLOBIN 11.2 g/dl (12.0-16.0); LYMPHOCYTES # 0.4 10^3/ul (0.8-2.9); LYMPHOCYTES % 7.4 % (15.0-51.0); MEAN CORPUSCULAR HEMOGLOBIN 30.5 pg (29.0-33.0); MEAN CORPUSCULAR HGB CONC 33.1 g/dl (32.0-37.0); MEAN CORPUSCULAR VOLUME 92.1 fl (82.0-101.0); MEAN PLATELET VOLUME 10.6 fl (7.4-10.4); MONOCYTE # 0.4 10^3/ul (0.3-0.9); MONOCYTES % 6.9 % (0.0-11.0); NEUTROPHIL # 4.9 10^3/ul (1.6-7.5); PLATELET COUNT 199 10^3/UL (140-415); RED BLOOD COUNT 3.67 10^6/ul (4.20-5.40); RED CELL DISTRIBUTION WIDTH 14.4 % (11.5-14.5)
[2018-10-22 20:20] LABS: WHITE BLOOD COUNT 5.9 10^3/ul (4.8-10.8)
[2018-10-22 20:21] LABS: POSITIVE DIFF @See below
[2018-10-22 20:26] LABS: HEMOGLOBIN A1C 5.6 % (0-5.9)
[2018-10-22 20:31] LABS: ALANINE AMINOTRANSFERASE 15 IU/L (13-69); ALBUMIN 4.1 g/dl (3.3-4.9); ALKALINE PHOSPHATASE 113 IU/L (42-121); ANION GAP 11 (5-13); ASPARTATE AMINO TRANSFERASE 21 IU/L (15-46); BILIRUBIN,INDIRECT 0.2 mg/dl (0-1.1); BILIRUBIN,TOTAL 0.2 mg/dl (0.2-1.3); BLOOD UREA NITROGEN 31 mg/dl (7-20); CALCIUM 9.1 mg/dl (8.4-10.2); CARBON DIOXIDE 26 mmol/L (21-31); CHLORIDE 92 mmol/L (97-110); CREATININE 5.93 mg/dl (0.44-1.00); Estimated GFR 8 mL/min (>60); GLUCOSE 174 mg/dl (70-220); PHOSPHORUS 3.7 mg/dl (2.5-4.9); POTASSIUM 4.7 mmol/L (3.5-5.1); SODIUM 129 mmol/L (135-144); TOTAL PROTEIN 7.5 g/dl (6.1-8.1)
[2018-10-22] MEDS: LORAZEPAM 1 MG TAB PO (23:18)
[2018-10-23] MEDS: ACCU-CHEK XX (02:37)
[2018-10-23 05:14] LABS: ADD MAN DIFF? NO
[2018-10-23 05:17] LABS: WHITE BLOOD COUNT 4.6 10^3/ul (4.8-10.8)
[2018-10-23 05:17] LABS: ABNORMAL IP MESSAGE 1; BASOPHILS % 0.2 % (0.0-2.0); EOSINOPHILS # 0.2 10^3/ul (0.0-0.5); EOSINOPHILS % 3.4 % (0.0-7.0); HEMATOCRIT 30.4 % (37.0-47.0); HEMOGLOBIN 10.1 g/dl (12.0-16.0); LYMPHOCYTES # 0.5 10^3/ul (0.8-2.9); LYMPHOCYTES % 10.6 % (15.0-51.0); MEAN CORPUSCULAR HEMOGLOBIN 30.4 pg (29.0-33.0); MEAN CORPUSCULAR HGB CONC 33.2 g/dl (32.0-37.0); MEAN CORPUSCULAR VOLUME 91.6 fl (82.0-101.0); MEAN PLATELET VOLUME 10.4 fl (7.4-10.4); MONOCYTE # 0.5 10^3/ul (0.3-0.9); MONOCYTES % 10.6 % (0.0-11.0); NEUTROPHIL # 3.5 10^3/ul (1.6-7.5); NEUTROPHILS % 74.6 % (39.0-77.0); PLATELET COUNT 190 10^3/UL (140-415); RED BLOOD COUNT 3.32 10^6/ul (4.20-5.40); RED CELL DISTRIBUTION WIDTH 14.2 % (11.5-14.5)
[2018-10-23 05:21] LABS: POSITIVE DIFF @See below
[2018-10-23 05:40] LABS: ANION GAP 11 (5-13); BLOOD UREA NITROGEN 35 mg/dl (7-20); CALCIUM 8.7 mg/dl (8.4-10.2); CARBON DIOXIDE 26 mmol/L (21-31); CHLORIDE 93 mmol/L (97-110); CREATININE 6.21 mg/dl (0.44-1.00); Estimated GFR 7 mL/min (>60); GLUCOSE 96 mg/dl (70-220); POTASSIUM 4.7 mmol/L (3.5-5.1); SODIUM 130 mmol/L (135-144)
[2018-10-23] MEDS: LEVOTHYROXINE 25 MCG TAB PO (06:18)
[2018-10-23] MEDS: PANTOPRAZOLE (EC) 40 MG TAB PO (06:18)
[2018-10-23] MEDS: INSULIN ASPART [NOVOLOG] 3 ML PEN SC ×2 (07:35→11:30)
[2018-10-23] MEDS: CALCIUM ACETATE 667 MG CAP PO ×2 (08:25→11:56)
[2018-10-23] MEDS: CEFTRIAXONE 1 GM/50 ML (PMX) 50 ML IVPB (09:00)
[2018-10-23] MEDS: GABAPENTIN 100 MG CAP PO (09:02)
[2018-10-23] MEDS: CLOPIDOGREL 75 MG TAB PO (09:02)
[2018-10-23] MEDS: AZITHROMYCIN 500 MG TAB PO (09:02)
[2018-10-23] MEDS: ISOSORBIDE MONONITRATE(SR)30 MG TAB PO (09:06)
[2018-10-23] MEDS: DOXAZOSIN 4 MG TAB PO (09:06)
[2018-10-23] MEDS: LOSARTAN 50 MG TAB PO (09:07)
[2018-10-23] MEDS: AMLODIPINE 5 MG TAB PO (09:07)
[2018-10-23] MEDS: INSULIN GLARGINE [LANTus] (100 UNITS/ML) SYG SC (09:15)
== END 2018-10-23 16:44 | disposition still patient (30) | DRG 304 ==
LOC: ICU 22:21 → E/R 19:13
PROC: 5A1D70Z Performance of Urinary Filtration, Intermittent, Less than 6 Hours Per Day (ICD-10-PCS; principal; 2018-10-18)
DX: I16.0 Hypertensive urgency (principal); N18.6 End stage renal disease; I24.8 Other forms of acute ischemic heart disease; E87.1 Hypo-osmolality and hyponatremia; E87.70 Fluid overload, unspecified; I12.0 Hypertensive chronic kidney disease with stage 5 chronic kidney disease or end stage renal disease; E78.5 Hyperlipidemia, unspecified; D63.1 Anemia in chronic kidney disease; K59.00 Constipation, unspecified; E03.9 Hypothyroidism, unspecified; R11.2 Nausea with vomiting, unspecified; E66.9 Obesity, unspecified; E11.22 Type 2 diabetes mellitus with diabetic chronic kidney disease; J98.8 Other specified respiratory disorders; E11.21 Type 2 diabetes mellitus with diabetic nephropathy; Z99.2 Dependence on renal dialysis; Z91.19 Patient's noncompliance with other medical treatment and regimen; Z68.32 Body mass index [BMI] 32.0-32.9, adult; Z86.73 Personal history of transient ischemic attack (TIA), and cerebral infarction without residual deficits
CPT/HCPCS: 36415; 71045; 74018; 76700; 80048; 80053; 80076; 82310; 82962; 83036; 83690; 84100; 84484; 84703; 85025; 85610; 85730; 87040-91; 87081; 87340; 90935; 93005; 93306; 96365; 96375; 99285-25

== ENCOUNTER 2018-10-28 18:37 | Inpatient (IN) | payer OTHER ==
[2018-10-28 18:53] LABS: ADD MAN DIFF? NO
[2018-10-28 18:57] LABS: WHITE BLOOD COUNT 5.5 10^3/ul (4.8-10.8)
[2018-10-28 18:57] LABS: ABNORMAL IP MESSAGE 1; BASOPHILS % 0.5 % (0.0-2.0); EOSINOPHILS # 0.2 10^3/ul (0.0-0.5); EOSINOPHILS % 2.9 % (0.0-7.0); HEMATOCRIT 32.5 % (37.0-47.0); HEMOGLOBIN 10.4 g/dl (12.0-16.0); LYMPHOCYTES # 0.5 10^3/ul (0.8-2.9); LYMPHOCYTES % 8.7 % (15.0-51.0); MEAN CORPUSCULAR HEMOGLOBIN 30.2 pg (29.0-33.0); MEAN CORPUSCULAR VOLUME 94.5 fl (82.0-101.0); MEAN PLATELET VOLUME 10.1 fl (7.4-10.4); MONOCYTE # 0.5 10^3/ul (0.3-0.9); MONOCYTES % 8.7 % (0.0-11.0); NEUTROPHIL # 4.3 10^3/ul (1.6-7.5); NEUTROPHILS % 77.8 % (39.0-77.0); PLATELET COUNT 225 10^3/UL (140-415); RED BLOOD COUNT 3.44 10^6/ul (4.20-5.40); RED CELL DISTRIBUTION WIDTH 14.9 % (11.5-14.5)
[2018-10-28] MEDS: NITROGLYCERIN (SL) 0.4 MG TAB SL (18:59)
[2018-10-28 19:03] LABS: POSITIVE DIFF @See below
[2018-10-28 19:18] LABS: ANION GAP 10 (5-13); BLOOD UREA NITROGEN 23 mg/dl (7-20); CALCIUM 8.9 mg/dl (8.4-10.2); CARBON DIOXIDE 28 mmol/L (21-31); CHLORIDE 99 mmol/L (97-110); CREATININE 5.58 mg/dl (0.44-1.00); Estimated GFR 8 mL/min (>60); GLUCOSE 128 mg/dl (70-220); POTASSIUM 4.3 mmol/L (3.5-5.1); SODIUM 137 mmol/L (135-144)
[2018-10-28 19:20] LABS: PT RATIO 1.1
[2018-10-28] MEDS ORDERED: morphine 4 MG/ML VIAL (19:27)
[2018-10-28 19:29] LABS: TROPONIN-I < 0.012 ng/ml (0.000-0.120)
[2018-10-28] MEDS: morphine 4 MG/ML VIAL IV ×2 (19:32→21:34)
[2018-10-28 19:47] LABS: INR 1.09; PROTIME 14.2 Sec (11.9-14.9)
[2018-10-28 19:50] LABS: PARTIAL THROMBOPLASTIN TIME > 180.0 Sec (23.0-35.0)
[2018-10-28] MEDS: NITROGLYCERIN 50 MG/D5W (PMX) 250 ML IV (20:03)
[2018-10-28] MEDS: AMLODIPINE 5 MG TAB PO (22:00)
[2018-10-29 00:31] LABS: HEPATITIS B SURFACE ANTIGEN NEGATIVE (NEGATIVE)
[2018-10-29 01:03] LABS: CREATINE KINASE 27 IU/L (23-200)
[2018-10-29 01:17] LABS: CK INDEX 1.9; CK-MB 0.51 ng/ml (0.0-2.4); TROPONIN-I < 0.012 ng/ml (0.000-0.120)
[2018-10-29] MEDS: morphine 2 MG INJ IV ×2 (01:46→18:25)
[2018-10-29] MEDS: HEPARIN 1000 UNITS/ML 10 ML INJ CATHETER (03:35)
[2018-10-29] MEDS: LABETALOL 200 MG TAB PO ×4 (04:57→20:44)
[2018-10-29] MEDS ORDERED: hydrALAzine 20 MG INJ (05:00)
[2018-10-29] MEDS: IOHEXOL 100 ML (05:12)
[2018-10-29] MEDS: SOD CHLORIDE 0.9% 100 ML (05:13)
[2018-10-29] MEDS: LOSARTAN 50 MG TAB PO ×3 (05:14→20:44)
[2018-10-29] MEDS: DOXAZOSIN 4 MG TAB PO ×3 (05:14→20:45)
[2018-10-29] MEDS: AMLODIPINE 5 MG TAB PO ×3 (05:15→20:45)
[2018-10-29] MEDS: ISOSORBIDE MONONITRATE(SR)30 MG TAB PO ×3 (05:15→20:45)
[2018-10-29] MEDS: MINOXIDIL 2.5 MG TAB PO (05:15)
[2018-10-29] MEDS: morphine 4 MG/ML VIAL IV (05:17)
[2018-10-29] MEDS: hydrALAzine 20 MG INJ IV ×2 (05:17→15:22)
[2018-10-29] MEDS: CLONIDINE 0.3 MG/24 HR PATCH TRANSDERM (05:22)
[2018-10-29 05:50] LABS: LACTIC ACID 0.8 mmol/L (0.5-2.0)
[2018-10-29 06:07] LABS: CK-MB 0.43 ng/ml (0.0-2.4); TROPONIN-I 0.015 ng/ml (0.000-0.120)
[2018-10-29 06:09] LABS: CK INDEX 1.7
[2018-10-29 06:10] LABS: CREATINE KINASE 25 IU/L (23-200)
[2018-10-29] MEDS: ONDANSETRON 4 MG INJ IV (06:32)
[2018-10-29] MEDS: PANTOPRAZOLE (EC) 40 MG TAB PO (07:02)
[2018-10-29] MEDS ORDERED: INSULIN LISPRO 2 UNIT SQ (08:00)
[2018-10-29] MEDS: LEVOTHYROXINE 25 MCG TAB PO (08:14)
[2018-10-29] MEDS: CLOPIDOGREL 75 MG TAB PO (08:14)
[2018-10-29] MEDS: MULTIVIT/CA CARB/B CMPLX/FA TAB PO (08:14)
[2018-10-29] MEDS: CALCIUM ACETATE 667 MG CAP PO ×3 (08:14→18:20)
[2018-10-29] MEDS: INSULIN ASPART [NOVOLOG] 3 ML PEN SC ×3 (08:29→18:40)
[2018-10-29] MEDS ORDERED: LACTULOSE 30ML CUP PO (08:30)
[2018-10-29] MEDS ORDERED: NON-FORMULARY/PATIENT OWN MED ([Nephro-Vite] 1 TAB) PO (09:00)
[2018-10-29] MEDS ORDERED: INSULIN GLARGINE [LANtus] 3 ML PEN SC (09:00)
[2018-10-29] MEDS: INSULIN GLARGINE [LANTus] (100 UNITS/ML) SYG SC (11:28)
[2018-10-30 01:05] LABS: ADD UMIC YES; UR ASCORBIC ACID NEGATIVE (NEGATIVE); UR BACTERIA FEW /HPF (NONE SEEN); UR BILIRUBIN (Dip) NEGATIVE (NEGATIVE); UR BLOOD (Dip) NEGATIVE (NEGATIVE); UR CLARITY CLOUDY (CLEAR); UR COLOR YELLOW (YELLOW); UR GLUCOSE (Dip) 3+ mg/dL (NEGATIVE); UR KETONES (Dip) NEGATIVE (NEGATIVE); UR LEUKOCYTE ESTERASE (Dip) 1+ Leu/ul (NEGATIVE); UR NITRITE (Dip) NEGATIVE (NEGATIVE); UR RBC 3 /HPF (0-5); UR SPECIFIC GRAVITY (Dip) 1.013 (1.003-1.030); UR SQUAMOUS EPITHELIAL CELL MANY /HPF (FEW); UR TOTAL PROTEIN (Dip) 3+ mg/dl (NEGATIVE); UR TRANSITIONAL EPI CELL FEW /HPF (NONE SEEN); UR UROBILINOGEN (Dip) NEGATIVE (NEGATIVE); UR WBC 15 /HPF (0-5)
[2018-10-30] MEDS: hydrALAzine 20 MG INJ IV (06:04)
[2018-10-30] MEDS: LEVOTHYROXINE 25 MCG TAB PO (06:04)
[2018-10-30 07:01] LABS: ANION GAP 10 (5-13); BLOOD UREA NITROGEN 19 mg/dl (7-20); CALCIUM 8.9 mg/dl (8.4-10.2); CARBON DIOXIDE 29 mmol/L (21-31); CHLORIDE 100 mmol/L (97-110); CREATININE 5.24 mg/dl (0.44-1.00); Estimated GFR 9 mL/min (>60); GLUCOSE 113 mg/dl (70-220); POTASSIUM 4.8 mmol/L (3.5-5.1); SODIUM 139 mmol/L (135-144)
[2018-10-30] MEDS: PANTOPRAZOLE (EC) 40 MG TAB PO (07:25)
[2018-10-30] MEDS: INSULIN ASPART [NOVOLOG] 3 ML PEN SC ×3 (07:55→17:55)
[2018-10-30] MEDS: CALCIUM ACETATE 667 MG CAP PO ×3 (07:55→17:55)
[2018-10-30] MEDS: INSULIN GLARGINE [LANTus] (100 UNITS/ML) SYG SC (08:31)
[2018-10-30] MEDS: CLOPIDOGREL 75 MG TAB PO (08:34)
[2018-10-30] MEDS: DOXAZOSIN 4 MG TAB PO ×2 (08:34→20:47)
[2018-10-30] MEDS: MULTIVIT/CA CARB/B CMPLX/FA TAB PO (12:04)
[2018-10-30] MEDS: AMLODIPINE 5 MG TAB PO ×2 (12:05→20:48)
[2018-10-30] MEDS: LABETALOL 200 MG TAB PO ×3 (12:05→20:49)
[2018-10-30] MEDS: LOSARTAN 50 MG TAB PO ×2 (12:52→20:48)
[2018-10-30] MEDS: HEPARIN 1000 UNITS/ML 10 ML INJ CATHETER (19:46)
[2018-10-30] MEDS: ISOSORBIDE MONONITRATE(SR)60 MG TAB PO (20:48)
[2018-10-31] MEDS: METHYLDOPA 250 MG TAB PO ×3 (00:51→20:20)
[2018-10-31] MEDS: morphine 2 MG INJ IV ×4 (03:31→20:40)
[2018-10-31] MEDS: PANTOPRAZOLE (EC) 40 MG TAB PO (07:26)
[2018-10-31] MEDS: LEVOTHYROXINE 25 MCG TAB PO (07:26)
[2018-10-31] MEDS: CALCIUM ACETATE 667 MG CAP PO ×3 (07:53→17:34)
[2018-10-31] MEDS: ISOSORBIDE MONONITRATE(SR)60 MG TAB PO ×2 (08:02→20:20)
[2018-10-31] MEDS: LOSARTAN 50 MG TAB PO ×2 (08:02→20:21)
[2018-10-31] MEDS: MULTIVIT/CA CARB/B CMPLX/FA TAB PO (08:02)
[2018-10-31] MEDS: CLOPIDOGREL 75 MG TAB PO (08:02)
[2018-10-31] MEDS: DOXAZOSIN 4 MG TAB PO ×2 (08:02→20:19)
[2018-10-31] MEDS: LABETALOL 200 MG TAB PO ×3 (08:10→20:22)
[2018-10-31] MEDS: AMLODIPINE 5 MG TAB PO ×2 (08:10→20:19)
[2018-10-31] MEDS: INSULIN GLARGINE [LANTus] (100 UNITS/ML) SYG SC (08:17)
[2018-10-31] MEDS: INSULIN ASPART [NOVOLOG] 3 ML PEN SC ×3 (08:17→17:35)
[2018-10-31] MEDS: clonAZEPAM 0.5 MG TAB PO (15:42)
[2018-10-31] MEDS: HEPARIN 1000 UNITS/ML 10 ML INJ CATHETER (19:05)
[2018-10-31] MEDS: HYDROCODONE/APAP (5/325) TAB PO ×2 (20:31→20:34)
[2018-10-31] MEDS: AL HYDROX/MG HYDROX/SIMETH 30 ML CUP PO (20:39)
[2018-11-01] MEDS: LEVOTHYROXINE 25 MCG TAB PO (05:53)
[2018-11-01] MEDS: morphine 2 MG INJ IV (05:54)
[2018-11-01] MEDS: hydrALAzine 20 MG INJ IV (05:55)
[2018-11-01] MEDS: INSULIN ASPART [NOVOLOG] 3 ML PEN SC (07:55)
[2018-11-01] MEDS: PANTOPRAZOLE (EC) 40 MG TAB PO (08:01)
[2018-11-01] MEDS: MULTIVIT/CA CARB/B CMPLX/FA TAB PO (08:01)
[2018-11-01] MEDS: CALCIUM ACETATE 667 MG CAP PO (08:02)
[2018-11-01] MEDS: DOXAZOSIN 4 MG TAB PO (08:02)
[2018-11-01] MEDS: CLOPIDOGREL 75 MG TAB PO (08:03)
[2018-11-01] MEDS: METHYLDOPA 250 MG TAB PO (08:03)
[2018-11-01] MEDS: AMLODIPINE 5 MG TAB PO (08:03)
[2018-11-01] MEDS: LOSARTAN 50 MG TAB PO (08:03)
[2018-11-01] MEDS: ISOSORBIDE MONONITRATE(SR)60 MG TAB PO (08:04)
[2018-11-01] MEDS: LABETALOL 200 MG TAB PO (08:05)
[2018-11-01] MEDS: INSULIN GLARGINE [LANTus] (100 UNITS/ML) SYG SC (08:14)
== END 2018-11-01 11:35 | disposition home health service (06) | DRG 304 ==
LOC: ICU 21:58 → E/R 18:37 → TEL 10-29 16:13
PROC: 5A1D70Z Performance of Urinary Filtration, Intermittent, Less than 6 Hours Per Day (ICD-10-PCS; principal; 2018-10-30)
DX: I16.0 Hypertensive urgency (principal); N18.6 End stage renal disease; I16.1 Hypertensive emergency; I24.8 Other forms of acute ischemic heart disease; I12.0 Hypertensive chronic kidney disease with stage 5 chronic kidney disease or end stage renal disease; E78.5 Hyperlipidemia, unspecified; E11.22 Type 2 diabetes mellitus with diabetic chronic kidney disease; Z86.73 Personal history of transient ischemic attack (TIA), and cerebral infarction without residual deficits; Z99.2 Dependence on renal dialysis; Z79.4 Long term (current) use of insulin; Z91.19 Patient's noncompliance with other medical treatment and regimen
CPT/HCPCS: 36415; 71045; 71275; 80048; 81001; 82550; 82553; 82962; 83605; 84484; 85025; 85610; 85730; 87081; 87340; 90935; 93005; 93976; 96374; 96375; 96376; 99285-25

== ENCOUNTER 2018-11-07 14:59 | Inpatient (IN) | payer OTHER ==
[2018-11-07 16:04] LABS: ADD MAN DIFF? NO
[2018-11-07 16:05] LABS: BASOPHILS % 0.4 % (0.0-2.0); EOSINOPHILS # 0.1 10^3/ul (0.0-0.5); EOSINOPHILS % 1.6 % (0.0-7.0); HEMATOCRIT 31.6 % (37.0-47.0); HEMOGLOBIN 10.4 g/dl (12.0-16.0); LYMPHOCYTES # 0.7 10^3/ul (0.8-2.9); MEAN CORPUSCULAR HEMOGLOBIN 30.8 pg (29.0-33.0); MEAN CORPUSCULAR HGB CONC 32.9 g/dl (32.0-37.0); MEAN CORPUSCULAR VOLUME 93.5 fl (82.0-101.0); MEAN PLATELET VOLUME 10.8 fl (7.4-10.4); MONOCYTE # 0.4 10^3/ul (0.3-0.9); MONOCYTES % 7.6 % (0.0-11.0); NEUTROPHIL # 3.8 10^3/ul (1.6-7.5); NEUTROPHILS % 76.4 % (39.0-77.0); PLATELET COUNT 109 10^3/UL (140-415); RED BLOOD COUNT 3.38 10^6/ul (4.20-5.40); RED CELL DISTRIBUTION WIDTH 14.4 % (11.5-14.5)
[2018-11-07 16:25] LABS: INR 1.02; PROTIME 13.5 Sec (11.9-14.9); PT RATIO 1.1
[2018-11-07] MEDS: NITROGLYCERIN 50 MG/D5W (PMX) 250 ML IV ×3 (16:25→23:24)
[2018-11-07 16:26] LABS: PARTIAL THROMBOPLASTIN TIME 36.7 Sec (23.0-35.0)
[2018-11-07 16:32] LABS: ALANINE AMINOTRANSFERASE 40 IU/L (13-69); ALBUMIN 4.2 g/dl (3.3-4.9); ALBUMIN/GLOBULIN RATIO 1.31; ALKALINE PHOSPHATASE 178 IU/L (42-121); ANION GAP 13 (5-13); ASPARTATE AMINO TRANSFERASE 50 IU/L (15-46); BILIRUBIN,INDIRECT 0.1 mg/dl (0-1.1); BILIRUBIN,TOTAL 0.3 mg/dl (0.2-1.3); BLOOD UREA NITROGEN 46 mg/dl (7-20); CARBON DIOXIDE 25 mmol/L (21-31); CHLORIDE 101 mmol/L (97-110); CREATININE 8.98 mg/dl (0.44-1.00); Estimated GFR 5 mL/min (>60); GLUCOSE 181 mg/dl (70-220); POTASSIUM 4.4 mmol/L (3.5-5.1); SODIUM 139 mmol/L (135-144); TOTAL PROTEIN 7.4 g/dl (6.1-8.1)
[2018-11-07 16:43] LABS: TROPONIN-I < 0.012 ng/ml (0.000-0.120)
[2018-11-07] MEDS: ACETAMINOPHEN 325 MG TAB PO (18:02)
[2018-11-07] MEDS: morphine 2 MG INJ IV (18:07)
[2018-11-07] MEDS: ONDANSETRON 4 MG INJ IV ×2 (18:07→23:53)
[2018-11-07] MEDS ORDERED: GLUCOSE GEL 15 GRAM TUBE PO ×2 (21:00)
[2018-11-07] MEDS ORDERED: GLUCOSE GEL 15 GRAM TUBE BUCCAL (21:00)
[2018-11-07] MEDS ORDERED: DEXTROSE 50% 50 ML SYRINGE IV ×2 (21:00)
[2018-11-07] MEDS ORDERED: GLUCAGON 1 MG INJ IM (21:00)
[2018-11-07] MEDS: morphine 4 MG/ML VIAL IV (23:53)
[2018-11-08] MEDS: METHYLDOPA 250 MG TAB PO ×3 (00:51→20:21)
[2018-11-08] MEDS: ISOSORBIDE MONONITRATE(SR)30 MG TAB PO ×2 (00:55→08:33)
[2018-11-08] MEDS: LOSARTAN 50 MG TAB PO ×3 (00:55→20:22)
[2018-11-08] MEDS: AMLODIPINE 5 MG TAB PO ×3 (00:55→20:22)
[2018-11-08] MEDS: GABAPENTIN 100 MG CAP PO ×3 (00:57→20:22)
[2018-11-08] MEDS: LABETALOL 100 MG TAB PO ×4 (00:57→20:26)
[2018-11-08] MEDS: INSULIN GLARGINE [LANtus] 3 ML PEN SC (01:18)
[2018-11-08] MEDS: DOXAZOSIN 4 MG TAB PO ×3 (01:18→20:27)
[2018-11-08] MEDS: CLOPIDOGREL 75 MG TAB PO ×2 (01:21→08:32)
[2018-11-08] MEDS: HEPARIN 1000 UNITS/ML 10 ML INJ CATHETER (01:52)
[2018-11-08] MEDS: clonAZEPAM 0.5 MG TAB PO (01:58)
[2018-11-08] MEDS: NITROGLYCERIN 50 MG/D5W (PMX) 250 ML IV ×7 (01:58→22:54)
[2018-11-08 04:47] LABS: ADD MAN DIFF? NO
[2018-11-08 05:08] LABS: BASOPHILS % 0.6 % (0.0-2.0); EOSINOPHILS # 0.1 10^3/ul (0.0-0.5); EOSINOPHILS % 2.5 % (0.0-7.0); HEMATOCRIT 28.3 % (37.0-47.0); HEMOGLOBIN 9.4 g/dl (12.0-16.0); LYMPHOCYTES # 0.6 10^3/ul (0.8-2.9); LYMPHOCYTES % 17.2 % (15.0-51.0); MEAN CORPUSCULAR HEMOGLOBIN 31.1 pg (29.0-33.0); MEAN CORPUSCULAR HGB CONC 33.2 g/dl (32.0-37.0); MEAN CORPUSCULAR VOLUME 93.7 fl (82.0-101.0); MONOCYTE # 0.4 10^3/ul (0.3-0.9); MONOCYTES % 10.3 % (0.0-11.0); NEUTROPHIL # 2.5 10^3/ul (1.6-7.5); NEUTROPHILS % 68.6 % (39.0-77.0); PLATELET COUNT 108 10^3/UL (140-415); RED BLOOD COUNT 3.02 10^6/ul (4.20-5.40); RED CELL DISTRIBUTION WIDTH 14.4 % (11.5-14.5)
[2018-11-08 05:08] LABS: WHITE BLOOD COUNT 3.6 10^3/ul (4.8-10.8)
[2018-11-08 05:36] LABS: ANION GAP 11 (5-13); BLOOD UREA NITROGEN 20 mg/dl (7-20); CALCIUM 8.7 mg/dl (8.4-10.2); CARBON DIOXIDE 28 mmol/L (21-31); CHLORIDE 99 mmol/L (97-110); CREATININE 5.34 mg/dl (0.44-1.00); Estimated GFR 9 mL/min (>60); GLUCOSE 184 mg/dl (70-220); PHOSPHORUS 3.3 mg/dl (2.5-4.9); POTASSIUM 3.8 mmol/L (3.5-5.1); SODIUM 138 mmol/L (135-144)
[2018-11-08] MEDS: morphine 2 MG INJ IV ×3 (06:28→15:06)
[2018-11-08] MEDS: PANTOPRAZOLE (EC) 40 MG TAB PO (07:01)
[2018-11-08] MEDS: ACCU-CHEK XX ×4 (07:01→20:28)
[2018-11-08] MEDS: LEVOTHYROXINE 25 MCG TAB PO (07:01)
[2018-11-08] MEDS: CALCIUM ACETATE 667 MG CAP PO ×3 (07:45→17:16)
[2018-11-08] MEDS: INSULIN ASPART [NOVOLOG] 3 ML PEN SC ×4 (07:56→20:28)
[2018-11-08] MEDS: INSULIN GLARGINE [LANTus] (100 UNITS/ML) SYG SC (08:46)
[2018-11-08 12:31] LABS: TROPONIN-I < 0.012 ng/ml (0.000-0.120)
[2018-11-09] MEDS: morphine 2 MG INJ IV ×3 (02:20→23:07)
[2018-11-09] MEDS: NITROGLYCERIN 50 MG/D5W (PMX) 250 ML IV ×6 (02:50→15:02)
[2018-11-09 05:14] LABS: ADD MAN DIFF? NO
[2018-11-09 05:15] LABS: BASOPHILS % 0.3 % (0.0-2.0); EOSINOPHILS # 0.1 10^3/ul (0.0-0.5); EOSINOPHILS % 2.8 % (0.0-7.0); HEMATOCRIT 29.4 % (37.0-47.0); HEMOGLOBIN 9.7 g/dl (12.0-16.0); LYMPHOCYTES # 0.7 10^3/ul (0.8-2.9); LYMPHOCYTES % 18.1 % (15.0-51.0); MEAN CORPUSCULAR HEMOGLOBIN 30.8 pg (29.0-33.0); MEAN CORPUSCULAR VOLUME 93.3 fl (82.0-101.0); MEAN PLATELET VOLUME 10.7 fl (7.4-10.4); MONOCYTE # 0.3 10^3/ul (0.3-0.9); MONOCYTES % 8.3 % (0.0-11.0); NEUTROPHIL # 2.7 10^3/ul (1.6-7.5); PLATELET COUNT 130 10^3/UL (140-415); RED BLOOD COUNT 3.15 10^6/ul (4.20-5.40); RED CELL DISTRIBUTION WIDTH 14.4 % (11.5-14.5)
[2018-11-09 05:15] LABS: WHITE BLOOD COUNT 3.9 10^3/ul (4.8-10.8)
[2018-11-09 05:39] LABS: ANION GAP 10 (5-13); BLOOD UREA NITROGEN 26 mg/dl (7-20); CALCIUM 8.8 mg/dl (8.4-10.2); CARBON DIOXIDE 28 mmol/L (21-31); CHLORIDE 91 mmol/L (97-110); CREATININE 6.82 mg/dl (0.44-1.00); Estimated GFR 6 mL/min (>60); GLUCOSE 149 mg/dl (70-220); PHOSPHORUS 4.5 mg/dl (2.5-4.9); POTASSIUM 4.3 mmol/L (3.5-5.1); SODIUM 129 mmol/L (135-144)
[2018-11-09] MEDS: ACCU-CHEK XX ×4 (06:15→20:16)
[2018-11-09] MEDS: PANTOPRAZOLE (EC) 40 MG TAB PO (06:20)
[2018-11-09] MEDS: LEVOTHYROXINE 25 MCG TAB PO (06:21)
[2018-11-09] MEDS: INSULIN ASPART [NOVOLOG] 3 ML PEN SC ×4 (06:38→20:23)
[2018-11-09] MEDS: CALCIUM ACETATE 667 MG CAP PO ×3 (08:25→16:50)
[2018-11-09] MEDS: AMLODIPINE 5 MG TAB PO ×2 (08:25→20:16)
[2018-11-09] MEDS: METHYLDOPA 250 MG TAB PO ×2 (08:26→20:15)
[2018-11-09] MEDS: CLOPIDOGREL 75 MG TAB PO (08:26)
[2018-11-09] MEDS: LOSARTAN 50 MG TAB PO ×2 (08:26→20:16)
[2018-11-09] MEDS: GABAPENTIN 100 MG CAP PO ×2 (08:26→20:16)
[2018-11-09] MEDS: LABETALOL 100 MG TAB PO ×3 (08:27→20:16)
[2018-11-09] MEDS: INSULIN GLARGINE [LANTus] (100 UNITS/ML) SYG SC (08:32)
[2018-11-09] MEDS: DOXAZOSIN 4 MG TAB PO ×2 (09:00→20:15)
[2018-11-10] MEDS: morphine 2 MG INJ IV ×3 (02:01→05:14)
[2018-11-10] MEDS: NITROGLYCERIN 50 MG/D5W (PMX) 250 ML IV ×5 (02:12→15:15)
[2018-11-10] MEDS: clonAZEPAM 0.5 MG TAB PO ×2 (02:16→08:22)
[2018-11-10] MEDS: PANTOPRAZOLE (EC) 40 MG TAB PO (06:11)
[2018-11-10] MEDS: LEVOTHYROXINE 25 MCG TAB PO (06:11)
[2018-11-10] MEDS: INSULIN ASPART [NOVOLOG] 3 ML PEN SC ×4 (07:35→20:43)
[2018-11-10] MEDS: ACCU-CHEK XX ×4 (08:00→20:39)
[2018-11-10] MEDS: CLOPIDOGREL 75 MG TAB PO (08:20)
[2018-11-10] MEDS: LABETALOL 100 MG TAB PO (08:20)
[2018-11-10] MEDS: GABAPENTIN 100 MG CAP PO ×2 (08:21→20:41)
[2018-11-10] MEDS: METHYLDOPA 250 MG TAB PO ×2 (08:22→20:42)
[2018-11-10] MEDS: CALCIUM ACETATE 667 MG CAP PO ×3 (08:22→17:18)
[2018-11-10] MEDS: DOXAZOSIN 4 MG TAB PO ×3 (08:22→20:40)
[2018-11-10] MEDS: AMLODIPINE 5 MG TAB PO ×2 (08:22→20:42)
[2018-11-10] MEDS: LOSARTAN 50 MG TAB PO ×2 (08:23→20:42)
[2018-11-10] MEDS: INSULIN GLARGINE [LANTus] (100 UNITS/ML) SYG SC (08:35)
[2018-11-10] MEDS: ZOLPIDEM 5 MG TAB PO (10:07)
[2018-11-10 10:17] LABS: ANION GAP 10 (5-13); BLOOD UREA NITROGEN 18 mg/dl (7-20); CALCIUM 8.1 mg/dl (8.4-10.2); CARBON DIOXIDE 26 mmol/L (21-31); CHLORIDE 88 mmol/L (97-110); CREATININE 4.75 mg/dl (0.44-1.00); Estimated GFR 10 mL/min (>60); GLUCOSE 315 mg/dl (70-220); SODIUM 124 mmol/L (135-144)
[2018-11-10] MEDS: LABETALOL 200 MG TAB PO (20:41)
[2018-11-10] MEDS: ISOSORBIDE DINITRATE 20 MG TAB PO (20:41)
[2018-11-11] MEDS: NITROGLYCERIN 50 MG/D5W (PMX) 250 ML IV ×3 (00:52→18:15)
[2018-11-11] MEDS: morphine 2 MG INJ IV ×5 (04:38→20:14)
[2018-11-11] MEDS: clonAZEPAM 0.5 MG TAB PO (04:55)
[2018-11-11] MEDS: ZOLPIDEM 5 MG TAB PO (04:55)
[2018-11-11] MEDS: LEVOTHYROXINE 25 MCG TAB PO (06:19)
[2018-11-11] MEDS: PANTOPRAZOLE (EC) 40 MG TAB PO (06:19)
[2018-11-11 06:21] LABS: ADD MAN DIFF? NO
[2018-11-11 06:24] LABS: BASOPHILS % 0.2 % (0.0-2.0); EOSINOPHILS # 0.1 10^3/ul (0.0-0.5); EOSINOPHILS % 1.7 % (0.0-7.0); HEMATOCRIT 29.4 % (37.0-47.0); HEMOGLOBIN 9.9 g/dl (12.0-16.0); LYMPHOCYTES # 0.7 10^3/ul (0.8-2.9); LYMPHOCYTES % 17.4 % (15.0-51.0); MEAN CORPUSCULAR HEMOGLOBIN 31.1 pg (29.0-33.0); MEAN CORPUSCULAR HGB CONC 33.7 g/dl (32.0-37.0); MEAN CORPUSCULAR VOLUME 92.5 fl (82.0-101.0); MEAN PLATELET VOLUME 10.6 fl (7.4-10.4); MONOCYTE # 0.3 10^3/ul (0.3-0.9); MONOCYTES % 6.8 % (0.0-11.0); NEUTROPHILS % 73.2 % (39.0-77.0); PLATELET COUNT 138 10^3/UL (140-415); RED BLOOD COUNT 3.18 10^6/ul (4.20-5.40); RED CELL DISTRIBUTION WIDTH 14.7 % (11.5-14.5)
[2018-11-11 06:24] LABS: WHITE BLOOD COUNT 4.1 10^3/ul (4.8-10.8)
[2018-11-11 07:02] LABS: ANION GAP 11 (5-13); BLOOD UREA NITROGEN 24 mg/dl (7-20); CALCIUM 8.5 mg/dl (8.4-10.2); CARBON DIOXIDE 27 mmol/L (21-31); CHLORIDE 88 mmol/L (97-110); CREATININE 6.37 mg/dl (0.44-1.00); Estimated GFR 7 mL/min (>60); GLUCOSE 131 mg/dl (70-220); POTASSIUM 4.8 mmol/L (3.5-5.1); SODIUM 126 mmol/L (135-144)
[2018-11-11] MEDS: ACCU-CHEK XX ×4 (07:05→20:31)
[2018-11-11] MEDS: CALCIUM ACETATE 667 MG CAP PO ×3 (08:20→17:08)
[2018-11-11] MEDS: AMLODIPINE 5 MG TAB PO ×2 (08:21→20:09)
[2018-11-11] MEDS: ISOSORBIDE DINITRATE 20 MG TAB PO ×3 (08:21→20:10)
[2018-11-11] MEDS: CLOPIDOGREL 75 MG TAB PO (08:21)
[2018-11-11] MEDS: LABETALOL 200 MG TAB PO ×3 (08:21→20:09)
[2018-11-11] MEDS: METHYLDOPA 250 MG TAB PO ×2 (08:22→20:10)
[2018-11-11] MEDS: LOSARTAN 50 MG TAB PO ×2 (08:23→20:10)
[2018-11-11] MEDS: GABAPENTIN 100 MG CAP PO ×2 (08:23→20:09)
[2018-11-11] MEDS: INSULIN GLARGINE [LANTus] (100 UNITS/ML) SYG SC (08:30)
[2018-11-11] MEDS: CLONIDINE 0.3 MG/24 HR PATCH TRANSDERM (08:32)
[2018-11-11] MEDS: INSULIN ASPART [NOVOLOG] 3 ML PEN SC ×4 (08:36→20:31)
[2018-11-11] MEDS: DOXAZOSIN 4 MG TAB PO ×2 (09:00→20:30)
[2018-11-11 09:15] LABS: TROPONIN-I < 0.012 ng/ml (0.000-0.120)
[2018-11-11] MEDS ORDERED: NITROGLYCERIN 50 MG/D5W (PMX) 250 ML (12:25)
[2018-11-11] MEDS: HEPARIN 1000 UNITS/ML 10 ML INJ HE ×2 (14:51→14:54)
[2018-11-12] MEDS: NITROGLYCERIN 50 MG/D5W (PMX) 250 ML IV ×3 (00:48→06:02)
[2018-11-12] MEDS: morphine 2 MG INJ IV ×3 (04:29→12:16)
[2018-11-12 05:44] LABS: ANION GAP 8 (5-13); BLOOD UREA NITROGEN 15 mg/dl (7-20); CALCIUM 8.7 mg/dl (8.4-10.2); CARBON DIOXIDE 27 mmol/L (21-31); CHLORIDE 93 mmol/L (97-110); Estimated GFR 9 mL/min (>60); GLUCOSE 119 mg/dl (70-220); POTASSIUM 4.7 mmol/L (3.5-5.1); SODIUM 128 mmol/L (135-144)
[2018-11-12] MEDS: LEVOTHYROXINE 25 MCG TAB PO (06:03)
[2018-11-12] MEDS: PANTOPRAZOLE (EC) 40 MG TAB PO (06:05)
[2018-11-12] MEDS: INSULIN ASPART [NOVOLOG] 3 ML PEN SC ×4 (07:35→21:00)
[2018-11-12] MEDS: ACCU-CHEK XX ×4 (07:42→21:00)
[2018-11-12] MEDS: CALCIUM ACETATE 667 MG CAP PO ×3 (07:44→17:34)
[2018-11-12] MEDS: INSULIN GLARGINE [LANTus] (100 UNITS/ML) SYG SC (09:00)
[2018-11-12] MEDS: METHYLDOPA 250 MG TAB PO ×2 (09:19→23:47)
[2018-11-12] MEDS: GABAPENTIN 100 MG CAP PO ×2 (09:19→23:39)
[2018-11-12] MEDS: ISOSORBIDE DINITRATE 20 MG TAB PO ×3 (09:20→23:40)
[2018-11-12] MEDS: CLOPIDOGREL 75 MG TAB PO (09:24)
[2018-11-12] MEDS: clonAZEPAM 0.5 MG TAB PO (09:24)
[2018-11-12] MEDS: DOXAZOSIN 4 MG TAB PO ×2 (09:24→23:48)
[2018-11-12] MEDS: LOSARTAN 50 MG TAB PO ×2 (09:24→23:42)
[2018-11-12] MEDS: AMLODIPINE 5 MG TAB PO ×2 (09:25→23:40)
[2018-11-12] MEDS: LABETALOL 200 MG TAB PO ×3 (09:25→23:41)
[2018-11-12] MEDS: traMADol 50 MG TAB PO ×2 (09:49→17:34)
[2018-11-12] MEDS: hydrALAzine 20 MG INJ IV (13:57)
[2018-11-12] MEDS: ESCITALOPRAM 10 MG TAB PO (17:34)
[2018-11-12 17:50] LABS: HEPATITIS B SURFACE ANTIGEN NEGATIVE (NEGATIVE)
[2018-11-12] MEDS: HEPARIN 1000 UNITS/ML 10 ML INJ CATHETER (23:37)
[2018-11-12] MEDS: SODIUM CHLORIDE 1 GM TAB PO (23:47)
[2018-11-13] MEDS: morphine 2 MG INJ IV ×2 (00:22→11:28)
[2018-11-13] MEDS: PANTOPRAZOLE (EC) 40 MG TAB PO (06:19)
[2018-11-13] MEDS: LEVOTHYROXINE 25 MCG TAB PO (06:19)
[2018-11-13] MEDS: INSULIN ASPART [NOVOLOG] 3 ML PEN SC ×3 (07:55→17:34)
[2018-11-13] MEDS: ACCU-CHEK XX ×3 (08:17→17:34)
[2018-11-13] MEDS: DOXAZOSIN 4 MG TAB PO (10:09)
[2018-11-13] MEDS: SODIUM CHLORIDE 1 GM TAB PO (10:09)
[2018-11-13] MEDS: SPIRONOLACTONE 25 MG TAB PO (10:09)
[2018-11-13] MEDS: CLOPIDOGREL 75 MG TAB PO (10:10)
[2018-11-13] MEDS: ISOSORBIDE DINITRATE 20 MG TAB PO ×2 (10:10→13:46)
[2018-11-13] MEDS: LABETALOL 200 MG TAB PO ×2 (10:10→13:46)
[2018-11-13] MEDS: GABAPENTIN 100 MG CAP PO (10:10)
[2018-11-13] MEDS: METHYLDOPA 250 MG TAB PO (10:11)
[2018-11-13] MEDS: CALCIUM ACETATE 667 MG CAP PO ×3 (10:11→17:35)
[2018-11-13] MEDS: LOSARTAN 50 MG TAB PO (10:11)
[2018-11-13] MEDS: AMLODIPINE 5 MG TAB PO (10:11)
[2018-11-13] MEDS: ESCITALOPRAM 10 MG TAB PO (10:11)
[2018-11-13] MEDS: INSULIN GLARGINE [LANTus] (100 UNITS/ML) SYG SC (10:29)
[2018-11-13] MEDS: EPOETIN ALFA-EPBX (ESRD) 4,000 UNIT/ML VIAL SC (17:35)
== END 2018-11-13 20:54 | disposition home health service (06) | DRG 304 ==
LOC: ICU 18:08 → TEL 11-12 18:58 → E/R 14:59
PROC: 5A1D70Z Performance of Urinary Filtration, Intermittent, Less than 6 Hours Per Day (ICD-10-PCS; principal; 2018-11-07)
DX: I16.0 Hypertensive urgency (principal); N18.6 End stage renal disease; F33.9 Major depressive disorder, recurrent, unspecified; E87.1 Hypo-osmolality and hyponatremia; I12.0 Hypertensive chronic kidney disease with stage 5 chronic kidney disease or end stage renal disease; E11.22 Type 2 diabetes mellitus with diabetic chronic kidney disease; E03.9 Hypothyroidism, unspecified; F41.9 Anxiety disorder, unspecified; R07.89 Other chest pain; E11.65 Type 2 diabetes mellitus with hyperglycemia; E66.9 Obesity, unspecified; Z68.27 Body mass index [BMI] 27.0-27.9, adult; Z91.14 Patient's other noncompliance with medication regimen; Z99.2 Dependence on renal dialysis
CPT/HCPCS: 36415; 71045; 80048; 80053; 82962; 83735; 84100; 84484; 85025; 85610; 85730; 87081; 87340; 90935; 93005; 96374; 96375; 97116; 97162; 97530; 99285-25

== ENCOUNTER 2018-11-20 08:57 | Inpatient (IN) | payer OTHER ==
[2018-11-20 10:44] LABS: ADD MAN DIFF? NO
[2018-11-20] MEDS: KETOROLAC 15 MG INJ IV (10:45)
[2018-11-20] MEDS: DIPHENHYDRAMINE 50 MG INJ IV (10:45)
[2018-11-20] MEDS: METOCLOPRAMIDE 10 MG INJ IV (10:45)
[2018-11-20 10:46] LABS: BASOPHILS % 0.4 % (0.0-2.0); EOSINOPHILS # 0.1 10^3/ul (0.0-0.5); EOSINOPHILS % 2.5 % (0.0-7.0); HEMATOCRIT 39.9 % (37.0-47.0); HEMOGLOBIN 13.3 g/dl (12.0-16.0); LYMPHOCYTES # 0.9 10^3/ul (0.8-2.9); LYMPHOCYTES % 16.4 % (15.0-51.0); MEAN CORPUSCULAR HEMOGLOBIN 31.3 pg (29.0-33.0); MEAN CORPUSCULAR HGB CONC 33.3 g/dl (32.0-37.0); MEAN CORPUSCULAR VOLUME 93.9 fl (82.0-101.0); MEAN PLATELET VOLUME 10.6 fl (7.4-10.4); MONOCYTE # 0.5 10^3/ul (0.3-0.9); MONOCYTES % 8.3 % (0.0-11.0); NEUTROPHIL # 4.1 10^3/ul (1.6-7.5); NEUTROPHILS % 71.9 % (39.0-77.0); PLATELET COUNT 142 10^3/UL (140-415); RED BLOOD COUNT 4.25 10^6/ul (4.20-5.40); RED CELL DISTRIBUTION WIDTH 15.8 % (11.5-14.5)
[2018-11-20 10:46] LABS: WHITE BLOOD COUNT 5.7 10^3/ul (4.8-10.8)
[2018-11-20 11:05] LABS: ANION GAP 12 (5-13); BLOOD UREA NITROGEN 43 mg/dl (7-20); CALCIUM 8.7 mg/dl (8.4-10.2); CARBON DIOXIDE 27 mmol/L (21-31); CHLORIDE 98 mmol/L (97-110); CREATININE 6.12 mg/dl (0.44-1.00); Estimated GFR 7 mL/min (>60); GLUCOSE 213 mg/dl (70-220); POTASSIUM 3.9 mmol/L (3.5-5.1); SODIUM 137 mmol/L (135-144)
[2018-11-20 11:17] LABS: TROPONIN-I 0.015 ng/ml (0.000-0.120)
[2018-11-20] MEDS: hydrALAzine 20 MG INJ IV ×2 (12:49→16:03)
[2018-11-20] MEDS ORDERED: ONDANSETRON 4 MG INJ IV ×2 (15:30→16:30)
[2018-11-20] MEDS: CLONIDINE 0.3 MG/24 HR PATCH TRANSDERM (16:13)
[2018-11-20] MEDS: AMLODIPINE 10 MG TAB PO ×2 (16:30→17:00)
[2018-11-20] MEDS: PENICILLIN V K 250 MG TAB PO (17:35)
[2018-11-20] MEDS: NITROGLYCERIN 50 MG/D5W (PMX) 250 ML IV (18:51)
[2018-11-20] MEDS: clonAZEPAM 0.5 MG TAB PO (22:49)
[2018-11-20] MEDS: LABETALOL 100 MG TAB PO (22:49)
[2018-11-20] MEDS: ISOSORBIDE MONONITRATE(SR)30 MG TAB PO (22:50)
[2018-11-20] MEDS: LOSARTAN 50 MG TAB PO (22:51)
[2018-11-21] MEDS: ACETAMINOPHEN 325 MG TAB PO (02:30)
[2018-11-21] MEDS: NITROGLYCERIN 50 MG/D5W (PMX) 250 ML IV ×2 (04:09→10:15)
[2018-11-21] MEDS: HEPARIN 1000 UNITS/ML 10 ML INJ CATHETER (04:26)
[2018-11-21] MEDS: morphine 2 MG INJ IV (04:36)
[2018-11-21] MEDS ORDERED: GLUCOSE GEL 15 GRAM TUBE PO ×2 (08:30)
[2018-11-21] MEDS ORDERED: GLUCOSE GEL 15 GRAM TUBE BUCCAL (08:30)
[2018-11-21] MEDS ORDERED: GLUCAGON 1 MG INJ IM (08:30)
[2018-11-21] MEDS ORDERED: DEXTROSE 50% 50 ML SYRINGE IV ×2 (08:30)
[2018-11-21] MEDS: INSULIN ASPART [NOVOLOG] 3 ML PEN SC ×4 (08:55→20:26)
[2018-11-21] MEDS: DOXAZOSIN 4 MG TAB PO ×3 (08:58→20:25)
[2018-11-21] MEDS: METHYLDOPA 250 MG TAB PO ×3 (08:58→20:25)
[2018-11-21] MEDS: ISOSORBIDE MONONITRATE(SR)30 MG TAB PO ×2 (08:58→20:26)
[2018-11-21] MEDS: LABETALOL 100 MG TAB PO ×3 (08:58→20:25)
[2018-11-21] MEDS: AMLODIPINE 10 MG TAB PO (08:59)
[2018-11-21] MEDS: clonAZEPAM 0.5 MG TAB PO ×3 (09:00→20:25)
[2018-11-21] MEDS: LOSARTAN 50 MG TAB PO ×2 (09:01→20:25)
[2018-11-21] MEDS: hydrALAzine 20 MG INJ IV ×2 (13:20→18:46)
== END 2018-11-21 23:48 | disposition home health service (06) | DRG 304 ==
LOC: E/R 08:57 → ICU 15:19
PROC: 5A1D70Z Performance of Urinary Filtration, Intermittent, Less than 6 Hours Per Day (ICD-10-PCS; principal; 2018-11-21)
DX: I16.0 Hypertensive urgency (principal); N18.6 End stage renal disease; I12.0 Hypertensive chronic kidney disease with stage 5 chronic kidney disease or end stage renal disease; Z99.2 Dependence on renal dialysis; E03.9 Hypothyroidism, unspecified; Z91.19 Patient's noncompliance with other medical treatment and regimen; K04.7 Periapical abscess without sinus; F41.9 Anxiety disorder, unspecified
CPT/HCPCS: 36415; 71045; 80048; 82962; 84484; 85025; 87081; 90935; 93005; 96374; 96375; 99285-25